=== PATIENT | male | born 1990 | race Caucasian/White ===

== ENCOUNTER 2019-12-29 05:46 | Emergency (ER) | payer OTHER, SELFPAY ==
--- NOTE | ~2019-12-29 | XR_ITS ---
EXAMINATION: XR forearm LT 2V DATE: 12/29/2019 06:55 INDICATION: Laceration at the left forearm after punching a window. TECHNIQUE: AP an lateral views of the left forearm were obtained. COMPARISON: none FINDINGS: Laceration and small amount of soft tissue gas at the volar aspect of the mid left forearm. No radiop aque foreign bodies in the region of the opacity. Small metallic foreign body, possibly a BB projecti ng in the soft tissues dorsal to the mid radius. Correlate with clinical history. Bone alignment is n ormal. No fracture. Joint spaces are normal. IMPRESSION: 1. Small metallic BB in the soft tissues dorsal to the mid radius opposite to a laceration at the vol ar aspect of the midforearm where there are no other radiopaque foreign bodies. Correlate for clinica l history of earlier penetrating trauma. Reviewed, dictated and finalized at location A. ETIC ENGINEER IMPRESSION: 1. Small metallic BB in the soft tissues dorsal to the mid radius opposite to a laceration at the volar aspect of the midforearm where there are no other radi opaque foreign bodies. Correlate for clinical history of earlier penetrating tr auma.
[2019-12-29 05:58] VITALS: BP 123/83; PULSE 98; RESP 20; TEMP 37.1; O2SAT 100
--- NOTE | 2019-12-29 06:38 | ED.WOUNDLAC ---
HPI - Wound/Laceration General Chief Complaint: Wound/Laceration Stated Complaint: lac Time Seen by Provider: 12/29/19 06:20 Source: RN notes reviewed History of Present Illness HPI narrative: Patient presents emergency department from home for left forearm laceration. Patient states that he believes approximately 2:30 AM this morning he had punched a window with his right hand. He states that he had been drinking and passed out woke up and had a heavy wrap around his left forearm when he took it off noticed a very large laceration over his left forearm. Patient is unsure of his last tetanus shot. He denies any other injuries. Denies any cuts or injuries to his right hand. Denies any pain at this time. He does note some mild tingling in the left hand but denies any fall numbness. Denies any other symptoms at this time Related Data Allergies Allergy/AdvReac Type Severity Reaction Status Date / Time Penicillins Allergy Unknown Verified 12/29/19 05:58 Review of Systems Review of Systems: Narrative: Gen.: Denies fevers or chills Musculoskeletal: Denies any joint pain Neuro: Denies numbness, tingling, weakness Skin: See HPI Endo: Denies DM PMFSH Past Medical History Medical History (Updated 12/29/19 @ 07:11 by Kuldeep Valladares DO) Patient denies medical problems Social History Social History (Updated 12/29/19 @ 06:40 by Kuldeep Valladares DO) Smoking packs per day: 0.75 Smoking cigarettes per day: 15.0 Exam Narrative: Exam Narrative: APPEARANCE: No acute distress, nontoxic, resting in bed Eyes: EOMI HEENT: Normocephalic, atraumatic, RESPIRATORY: No respiratory distress MUSCULOSKELETAl: Left lateral mid palmar forearm has a 14 cm laceration that is linear and deep there is mild venous bleeding, no definitive foreign body seen, there is a laceration of flexor tendon as well as laceration extends into the deep musculature, radial pulse 2+, full flexion extension of all 5 MCP and IP joints sensation intact distally with pinprick, no tenderness of the right hand with full flexion-extension of all 5 MCP and IP joints, radial pulse 2+, superficial abrasion over the right dorsal hand in the region of the fifth metacarpal NEURO: Awake and alert. Following commands, speech normal, no focal deficits SKIN:: Warm, dry. See musculoskeletal Course Course Emergency Course: Called and discussed Dr. Saeed for hand. At this time recommends transfer to tertiary center as with forearm laceration requires higher level of care Discussed with patient who request [facility] Discussed with Dr. Goetz at [facility] who states he will see the patient recommends transfer to the ER Discussed with Dr. Samano who accepts patient to the ER at [facility] Patient was initially waiting for ambulance transport which has been delayed the patient is willing to go by private vehicle. Family is present. The patient will be discharged to go directly to [facility] emergency department for further evaluation Vital Signs Vital signs: Vital Signs Temperature 98.7 F 12/29/19 05:58 Pulse Rate 98 12/29/19 05:58 Respiratory Rate 20 12/29/19 05:58 Blood Pressure 123/83 12/29/19 05:58 Pulse Oximetry 100 12/29/19 05:58 Temperature 98.7 F 12/29/19 05:58 Pulse Rate 98 12/29/19 05:58 Respiratory Rate 20 12/29/19 05:58 Blood Pressure 123/83 12/29/19 05:58 Pulse Oximetry 100 12/29/19 05:58 Discharge Plan Discharge Clinical Impression: Flexor tendon laceration of left forearm with open wound Condition: Stable Additional Instructions: Go directly to [facility] emergency department for further evaluation Follow-up/Referrals: UNKNOWN,DOCTOR [Primary Care Provider] - Time of Disposition: :
[2019-12-29] MEDS: TETANUS,DIPHTHERIA,AC PERTUSSIS ADULT 0.5 ML (ADACEL) IM (06:53)
[2019-12-29] MEDS: MORPHINE SULFATE 2 MG/ML INJ IV PUSH (07:03)
--- NOTE | 2019-12-29 07:07 | PC.NURSE ---
Called [facility] to transport patient to [facility] [place]. ETA [id number]. #[id number]
--- NOTE | 2019-12-29 07:48 | PC.NURSE ---
Called [facility] to check on status of eta and they stated new time is ETA [id number]
--- NOTE | 2019-12-29 08:42 | PC.NURSE ---
[facility] called and updated ETA is [id number]
--- NOTE | 2019-12-29 09:00 | PC.NURSE ---
Psychic Reader called [facility] for updated ETA. [facility] stated first they would be here at 730, then stated they had no BLS units until noon. [facility] stated that they could possibly get the 9 o'clock to come but unsure if they would be able to. Informed Pt. Pt. requested to go by private car instead due to long wait for a rig. EDP notified and EDP talked to Pt. and is ok will Pt. going by private vehicle to [place].
[2019-12-29 09:15] VITALS: BP 110/74; PULSE 76; RESP 16; O2SAT 99
--- NOTE | 2019-12-29 09:20 | PC.NURSE ---
Pt. ambulated out of ED to POV. PMS intact in bilateral arms. Pt. left department stable with IV access removed.
--- NOTE | 2019-12-29 09:28 | PC.NURSE ---
Called [facility] and spoke Jasmine HUNT to notify Pt. will be coming via private vehicle.
== END 2019-12-29 09:20 | disposition short-term general hospital (02) ==
PROVIDERS: Emergency Provider Emergency Medicine
DX: S51.812A Laceration without foreign body of left forearm, initial encounter (principal); W25.XXXA Contact with sharp glass, initial encounter; F17.210 Nicotine dependence, cigarettes, uncomplicated; Z23 Encounter for immunization
CPT/HCPCS: 73090; 90471; 90715; 96374; 99284; J2270

== ENCOUNTER 2025-07-19 20:25 | Observation (INO) | payer OTHER, SELFPAY ==
[2025-07-19] VITALS (7 sets, daily range): BP systolic 130–143; BP diastolic 86–99; PULSE 87–101; RESP 15–24; TEMP 36.6–36.8; O2SAT 94–98
--- NOTE | ~2025-07-19 | XR_ITS ---
EXAMINATION: XR chest 1V portable DATE: 07/19/2025 21:38 INDICATION: Left-sided weakness. Stroke. TECHNIQUE: frontal view of the chest was obtained. COMPARISON: None FINDINGS: The lungs are clear with no focal airspace opacities, pulmonary edema, pleural effusion or pneumothorax. The cardiomediastinal silhouette is normal. Visualized bones and soft tissues are unremarkable. IMPRESSION: 1. No acute cardiopulmonary disease. Reviewed, dictated and finalized at location A.
--- NOTE | ~2025-07-19 | CT_ITS ---
EXAMINATION: CT brain wo con DATE: 07/19/2025 21:03 INDICATION: Stroke TECHNIQUE: Computed tomography (CT) of the head was performed without intravenous contrast. Sagittal and coronal reconstructions were performed. The mA was adjusted according to patient size. Iterative reconstruction technique was employed. The dose-length product was 908.00 mGy-cm. COMPARISON: None FINDINGS: No acute intracranial hemorrhage, acute infarction or abnormal extra axial fluid collection. Ventricles are normal and symmetric. No mass/mass effect. The orbits, paranasal sinuses and mastoid air cells are normal. IMPRESSION: 1. Normal head CT. Reviewed, dictated and finalized at location A. IMPRESSION: 1. Normal head CT.
--- NOTE | ~2025-07-19 | CT_ITS ---
EXAMINATION: CT brain wo con DATE: 07/22/2025 09:46 INDICATION: Left hemiparesis. Dilated left pupil. TECHNIQUE: Computed tomography (CT) of the head was performed without intravenous contrast. Sagittal and coronal reconstructions were performed. The mA was adjusted according to patient size. Iterative reconstruction technique was employed. The dose-length product was 605.33 mGy-cm. COMPARISON: Brain MR dated 07/21/2025 FINDINGS: No acute intracranial hemorrhage, acute infarction or abnormal extra axial fluid collection. Ventricles are normal and symmetric. No mass/mass effect. Small amount of fluid/mucus layering dependently in the right sphenoid sinus. The orbits and mastoid air cells are normal. IMPRESSION: 1. Normal brain. No acute intracranial process. Reviewed, dictated and finalized at location A.
--- NOTE | ~2025-07-19 | CT_ITS ---
EXAMINATION: CTA BRAIN/CAROTID DATE: 07/19/2025 21:17 INDICATION: Stroke with left-sided numbness TECHNIQUE: Computed tomographic angiography (CTA) of the head and neck was performed with 100 mL Omnipaque-350 intravenous contrast. Multiplanar reconstructions and maximum intensity projection 3D-reconstructions of the carotid arteries and of the intracranial arteries were created by the technologist on a separate workstation. Automated exposure control and iterative reconstruction technique were employed.The dose-length product was 923.95 mGy-cm. COMPARISON: None. FINDINGS: Intracranial arteries Vertebral arteries are codominant. There is no hemodynamically significant stenosis in the vertebral, basilar and internal carotid arteries. Both A1 and P1 segments are patent. There is also a patent intercommunicating artery. There are no aneurysms identified. Cerebral arterial arborization appears symmetric. No abnormally enhancing brain lesions. Small amount of dependently layering mucus in the right sphenoid sinus. Carotid arteries: The aortic arch and the great vessels arising from the arch are normal in caliber with no dissection or hemodynamically significant stenosis. There is no evident atherosclerotic plaque with 0% stenosis of the right and left carotid bulbs relative to normal distal artery lumen diameter (NASCET criteria). Bilateral vertebral arteries are codominant with no hemodynamically significant stenosis. Groundglass opacities in the visualized upper lungs likely due to expiratory phase of imaging. Cervical soft tissues are unremarkable. Mild to moderate lower cervical spondylosis. IMPRESSION: 1. No evident atherosclerotic plaque with 0% stenosis of the right and left carotid bulbs relative to normal distal artery lumen diameter (NASCET criteria). 2. Unremarkable cerebral CT angiogram with no hemodynamically significant stenosis, thrombosis or aneurysm. Reviewed, dictated and finalized at location A. IMPRESSION: 1. No evident atherosclerotic plaque with 0% stenosis of the right and left car otid bulbs relative to normal distal artery lumen diameter (NASCET criteria). 2. Unremarkable cerebral CT angiogram with no hemodynamically significant steno sis, thrombosis or aneurysm.
--- NOTE | ~2025-07-19 | US_ITS ---
EXAMINATION: US abdomen limited DATE: 07/22/2025 08:47 INDICATION: Cirrhosis. Hepatitis. TECHNIQUE: Multiple grayscale and Doppler ultrasound images of the abdomen were obtained. COMPARISON: None FINDINGS: The pancreatic head and body are normal in appearance. The pancreatic tail is not visualized. Visualized proximal abdominal aorta and inferior vena cava are normal. There is mildly heterogeneous increased hepatic parenchymal echogenicity and coarsened echotexture consistent with diffuse hepatic steatosis. There is also fine liver surface nodularity consistent with provided history of cirrhosis. The gallbladder is normal in appearance. There is no cholelithiasis. The common bile duct measures 3 mm, which is normal. No intrahepatic biliary duct dilation suspected. Portal venous flow was seen in the hepatopetal, normal direction and has normal Doppler waveform. Sonographic [place] sign was reported as negative by the claims adjuster crop.Visualized right kidney demonstrates normal contour and echogenicity with no hydronephrosis. IMPRESSION: 1. Cirrhosis and diffuse hepatic steatosis. Reviewed, dictated and finalized at location A.
--- NOTE | ~2025-07-19 | MR_ITS ---
EXAMINATION: MR brain/brain stem wo/w con DATE: 07/21/2025 08:41 INDICATION: Left-sided weakness TECHNIQUE: Magnetic resonance imaging (MRI) of the brain and brainstem was performed without and with 15 mL Multihance intravenous contrast. Sequences included sagittal and axial T1-weighted SE, axial diffusion-weighted FS SE, axial 3D SWAN, axial T2-weighted FLAIR, and axial T2-weighted FSE. Postcontrast axial and coronal T1-weighted SE was obtained. Apparent diffusion coefficient (ADC) maps were created. COMPARISON: Head CT and CT angiogram dated 07/19/2025 FINDINGS: There are no areas of restricted diffusion to suggest acute infarction. No intracranial hemorrhage or abnormal intracranial mass lesion. There are no intraparenchymal signal abnormalities seen on the other pulse sequences. The ventricles are symmetric and normal in size. There are no abnormal extra-axial fluid collections. Flow voids are seen in the cerebral arteries on the T2- weighted sequences consistent with their expected patency. Mild mucosal thickening in the left maxillary and bilateral ethmoid sinuses. Visualized orbits and soft tissues are unremarkable. There are no areas of abnormal enhanc ement on the post contrast images. IMPRESSION: 1. Normal brain. No acute intracranial process. Reviewed, dictated and finalized at location A.
--- OUTSIDE RECORDS SUMMARY | 2025-07-19 20:28 | XMS_ITS | Clinical Summary ---
Author Organization [facility] Address [address] [place] [address] Care Team Providers Care Apartment Groundskeeper Name Role Phone Unknown, Notinfile Primary Care Provider Unavail able Allergies Active Allergy Reactions Criticality Noted Date Comments Penicillins Anaphylaxis High 12/31/2019 Medications buPROPion XL (WELLBUTRIN XL) 150 mg 24 hr tablet Take 150 mg by mouth 2 (two) times a day 9 Active acetaminophen (TYLENOL) 500 mg tablet Take 1,000 mg by mouth every 6 (six) hours as needed for pain Active HYDROcodone-love taminophen (NORCO) 5-325 mg per tabletIndicatio ns:Pain Take 1 tablet by mouth every 6 (six) hours as needed for pain (breakthrough pain only (not relieved by ibuprofen/tyleno l)) 8 tablet 0 Active docusate sodium (COLACE) 100 mg capsuleIndicati ons:constipatio n Take 1 capsule (100 mg total) by mouth 2 (two) times a day as needed for constipation 10 capsule 0 Active Active Problems Problem Noted Date Diagnosed Date Forearm laceration involving tendon, left, initial encounter 12/30/2019 Overview (12/30/2019): Added automatically from request for surgery [id number] Medical History Medical History Date Comments Tobacco abuse Laceration of forearm, left 12/29/2019 L vo lar forearm lac Cannabis abuse Back pain Full dentures Broken teeth Anxiety Family History Medical History Relation Name Comments No Known Problems Father Cancer Mother Relation Name Status Comments Father Mother Social History Tobacco Use Types Packs/Day Years Used Date Smoking Tobacco: Every Day Cigarettes Smokeless Tobacco: Never Tobacco Cessation:Ready to Q uit: No; Counseling Given: Yes Alcohol Use Standard Drinks/Week Comments Yes 3 (1 standard drink = 0.6 oz pur e alcohol) Sex and Gender Information Value Date Recorded Sex Assigned at Not on file 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 Gender Identity Not on file Sexual Orientation Not on file Obstetrics History Last Filed Vital Signs Vital Sign Reading Time Taken Comments Blood Pressure 127/84 01/02/2020 9:50 AM ELECTRONIC OPERATOR Pulse 61 01/02/2020 9:55 AM ELECTRONIC OPERATOR Temperature 36.2 C (97.2 F) 01/02/2020 9:38 AM ELECTRONIC OPERATOR Respiratory Rate 14 01/02/2020 9:38 AM ELECTRONIC OPERATOR Oxygen Saturation 96% 01/02/2020 9:55 AM ELECTRONIC OPERATOR Inhaled Oxygen Concentration - - Weight 74.8 kg (165 lb) 12/31/2019 8:40 AM ELECTRONIC OPERATOR Height 167.6 cm (5' 6) 12/31/2019 8:40 AM ELECTRONIC OPERATOR Body Mass Index 26.63 12/31/2019 8:40 AM ELECTRONIC OPERATOR Plan of Treatment Not on file Insurance [employer] ACCESS [place] OPEN ACCESS Care Teams Apartment Groundskeeper Relationship Specialty Start Date End Date Unknown, Notinfile PCP - General 12/29/19
--- NOTE | 2025-07-19 20:35 | ECG_ITS ---
Test Date: 2025-07-19 21:06:28 Measurements Intervals [place] Rate: 86 P: 52 WI: 127 QRS: 11 QRSD: 97 T: 43 QT: 348 QTc: 417 Interpretive Statements SINUS RHYTHM WITH SINUS ARRHYTHMIA BASELINE ARTIFACT- I, II NORMAL ECG No previous ECG available for comparison Electronically Signed On 07-19-2025 21:24:36 CDT by Vadim Hall D.O.
--- NOTE | 2025-07-19 20:35 | PC.NURSE ---
pt meets criteria for stroke stop. edp/charge aware. Stroke stop paged, pt to ct 1 after stroke stop, ed room 10 to follow.
[2025-07-19 20:48] LABS: Hematocrit 43.2 % (42.0-52.0); Hemoglobin 14.1 g/dL (14.0-18.0); Immature Granulocyte Percent A 0.2 % (0-0.5); Lymphocytes Absolute Auto 1.84 K/mm3 (0.9-3.2); Mean Corpuscular HGB Conc 32.6 g/dl (32-36); Mean Corpuscular Hemoglobin 29.3 pg (26-34); Mean Corpuscular Volume 89.8 fl (80-100); Nucleated Red Blood Cells Absolute Auto 0.000 K/mm3 (0.0-0.012); Nucleated Red Blood Cells Perc 0.0 % (0.0-0.2); Platelet Count Result 249 k/mm3 (150-375); Red Blood Count 4.81 M/mm3 (4.6-6.20); White Blood Count 5.5 K/mm3 (4.5-10.0)
[2025-07-19 21:02] LABS: INR 1.0; Prothrombin Time 13.0 Seconds (11.1-14.7)
[2025-07-19 21:03] LABS: Partial Thromboplastin Time 27.7 Seconds (22.3-36.8)
[2025-07-19 21:05] LABS: Alanine Aminotransferase 415 U/L (6-50); Albumin Level 4.8 g/dL (3.5-5.1); Alkaline Phosphatase 134 U/L (38-126); Anion Gap 15 mmol/L (4-12); Aspartate Amino Transferase 728 U/L (17-59); Bilirubin,Total 0.6 mg/dL (0.2-1.3); Blood Urea Nitrogen 7 mg/dL (9-20); Calcium 9.2 mg/dL (8.4-10.2); Carbon Dioxide 24 mmol/L (22-30); Chloride 106 mmol/L (98-107); Estimated CRCL calculation 104 ml/min; Estimated Glomerular Filt Rate > 60; Glucose 104 mg/dL (65-110); Magnesium 2.1 mg/dL (1.6-2.3); Potassium 3.4 mmol/L (3.4-5.0); Sodium 145 mmol/L (137-145); Total Protein 8.7 g/dL (6.3-8.2)
[2025-07-19 21:11] LABS: Troponin I < 0.012 ng/mL (0.000-0.034)
--- OUTSIDE RECORDS SUMMARY | 2025-07-19 21:30 | XMS_ITS | Clinical Summary ---
Author Organization [facility] Address [facility] [place] [address] Care Team Providers Care Automobile Brakes Bonder Name Role Phone None, Provider MD Primary Care Provider Unavaila ble Allergies Active Allergy Reactions Criticality Noted Date Comments Penicillins Swelling 08/31/2020 Medications HYDROcodone-ac etaminophen 5-325 MG tabletIndicati ons:Acute Pain < 3 Day Supply Take 1 tablet by mouth every 6 (six) hours as needed. Indications: Acute Pain < 3 Day Supply Do not exceed 4g of acetaminophen in a day. 10 tablet 0 Active Social History Tobacco Use Types Packs/Day Years Used Date Smoking Tobacco: Every Day Cigarettes Smokeless Tobacco: Never Alcohol Use Standard Drinks/Week Comments Never 0 (1 standard drink = 0.6 oz pur e alcohol) AUDIT-C Answer Date Recorded Q1: How often do you have a drink containing alc ohol? Never 08/31/2020 Average Number of Drinks Not on file 020 Frequency of Binge Drinking Not on file 08/19 Sex and Gender Information Value Date Recorded Sex Assigned at Not on file Legal Sex Male 7:16 PM CDT Gender Identity Not on file Sexual Orientation Not on file Last Filed Vital Signs Vital Sign Reading Time Taken Comments Blood Pressure 145/92 08/31/2020 6:45 PM CDT Pulse 62 08/31/2020 6:45 PM CDT Temperature 36.6 C (97.8 F) 08/31/2020 1:21 PM CDT Respiratory Rate 18 08/31/2020 6:45 PM CDT Oxygen Saturation 99% 08/31/2020 6:45 PM CDT Inhaled Oxygen Concentration - - Weight 72.6 kg (160 lb) 08/31/2020 1:21 PM CDT Height 167.6 cm (5' 6) 08/31/2020 1:21 PM CDT Body Mass Index 25.82 08/31/2020 1:21 PM CDT Plan of Treatment Health Maintenance Due Date Last Done Comments Annual Physical 1991 Hepatitis C 2006 DTaP, Tdap and Td Vaccines (1 - Tdap) 2007 03/08/1995, 07/05/1994, 07/05/1993, Additional history exists Hepatitis B Vaccines (1 of 3 - 19+ 3-dose series) 2007 Pneumococcal Vaccine: Pediatrics (0 to 5 Years) and At-Risk Patients (6 to 49 Years) (1 of 2 - PCV) 2007 HPV Vaccines (1 - 3-dose SCDM series) 2015 COVID-19 Vaccine ( - 2023- season) 2024 Meningococcal B Vaccine Aged Out No l onger eligible based on patient's age to complete this topic Meningococcal Vaccine Aged Out No barbara ishan eligible based on patient's age to complete this topic RSV Immunizations Under 20 Months Aged Out No longer eligible based on patient's age to complete this topic Insurance [employer] Care Teams Automobile Brakes Bonder Relationship Specialty Start Date End Date None, Provider, PCP - General 08/31/20
--- OUTSIDE RECORDS SUMMARY | 2025-07-19 21:31 | XMS_ITS | Clinical Summary ---
Author Organization [facility] Address [address] [place] [address] Care Team Providers Care Pilates Coordinator Name Role Phone Unknown, Notinfile Primary Care [...] (12/30/2019): Added automatically from request for surgery [id number] Medical History Medical History Date Comments Tobacco [...] on file Legal Sex Male 5:29 PM CHECKER Gender Identity Not on file Sexual Orientation Not on file Obstetrics History Last Filed Vital Signs Vital Sign Reading Time Taken Comments Blood Pressure 127/84 01/02/2020 9:50 AM CHECKER Pulse 61 01/02/2020 9:55 AM CHECKER Temperature 36.2 C (97.2 F) 01/02/2020 9:38 AM CHECKER Respiratory Rate 14 01/02/2020 9:38 AM CHECKER Oxygen Saturation 96% 01/02/2020 9:55 AM CHECKER Inhaled Oxygen Concentration - - Weight 74.8 kg (165 lb) 12/31/2019 8:40 AM CHECKER Height 167.6 cm (5' 6) 12/31/2019 8:40 AM CHECKER Body Mass Index 26.63 12/31/2019 8:40 AM CHECKER Plan of Treatment Not on file Insurance [employer] ACCESS [employer] OPEN ACCESS Care Teams Pilates Coordinator Relationship Specialty Start Date End Date Unknown, Notinfile PCP - General 12/29/19
[2025-07-19 21:52] LABS: Strep Group A RT-PCR NOT DETECTED (Negative)
[2025-07-19 22:04] LABS: Influenza A QL RT-PCR Negative (Negative); Influenza B QL RT-PCR Negative (Negative); RSV RNA, RT-PCR Negative (Negative); SARS-CoV-2 RNA PCR Negative (Negative)
--- NOTE | 2025-07-19 23:31 | ED.GENADULT ---
HPI - General Adult General Chief complaint: Neuro Symptoms/Deficit Stated complaint: FEVER, CHILLS Time Seen by Provider: 07/19/25 20:48 History of Present Illness HPI narrative: Patient is a 34-year-old gentleman presents emergency department with chief complaint of left-sided weakness. The patient reports that he was at work and does not know exactly what time passed out and laid on the floor patient states that he woke up and then about 1 hour ago called his significant other and then came to the emergency department the patient states that he felt lightheaded had some double vision and reports that he has some tingling and feels as though his strength is slightly decreased on the left side Related Data Home Medications ?Medication ?Instructions ?Recorded ?Confirmed ?Last Taken ?Type bupropion HCl 200 mg tablet,12 hr mg PO 07/19/25 Unknown History sustained-release escitalopram oxalate 10 mg tablet 20 mg 07/19/25 Unknown History Allergies Allergy/AdvReac Type Severity Reaction Status Date / Time Penicillins Allergy Unknown Verified 07/19/25 20:56 Review of Systems Review of Systems: A 10 system review of systems was completed on the patient and is negative except for what is stated in the HPI. Nursing and ancillary documentation was reviewed. [facility] Past Medical History Medical History Patient denies medical problems Social History Social History Smoking packs per day: 0.75 Smoking cigarettes per day: 15.0 Exam Narrative: GENERAL: Well-appearing, well-nourished, and in no acute distress. HEAD: Normocephalic, atraumatic. EYES: PERRLA and EOMI. ENT: Nares clear, no rhinorrhea or epistaxis. Mucous membranes moist. NECK: Supple. CHEST: Clear to auscultation. No respiratory distress. HEART: Regular rate and rhythm. No murmur heard. Normal peripheral pulses. ABDOMEN: Soft, nontender, nondistended, normal active bowel sounds. EXTREMITIES: Normal range of motion. No edema. SKIN: Warm, dry, no rash. NEURO: Slight decrease in sensation on the left side of the body patient is able hold upper extremities and lower extremities without difficulty patient subjectively reports that they feel weaker than the right side Alert and oriented x3. PSYCH: Normal mood and affect. Course Vital Signs Vital signs: Vital Signs Temperature 36.6 C 07/19/25 20:27 Pulse Rate 96 07/19/25 20:27 Respiratory Rate 16 07/19/25 20:27 Blood Pressure 143/92 H 07/19/25 20:27 Pulse Oximetry 98 07/19/25 20:27 Oxygen Delivery Room Air 07/19/25 20:27 Temperature 36.8 C 07/19/25 20:54 Pulse Rate 101 H 07/19/25 22:04 Respiratory Rate 15 07/19/25 22:04 Blood Pressure 130/86 07/19/25 21:01 Pulse Oximetry 94 07/19/25 22:04 Oxygen Delivery Room Air 07/19/25 20:27 Medical Decision Making MDM Narrative Medical decision making narrative: Differential diagnosis includes CVA, viral illness, vasovagal syncope, cardiogenic syncope, Given the patient had a syncopal episode unknown last known well as the patient is unsure of how long he was unconscious for the patient is not a candidate for tPA as well of neurological symptoms are currently with a NIH of 1 Patient currently has no drift in upper or lower extremities Vital Signs Vital Signs: Vital Signs Temperature 36.6 C 07/19/25 20:27 Pulse Rate 96 07/19/25 20:27 Respiratory Rate 16 07/19/25 20:27 Blood Pressure 143/92 H 07/19/25 20:27 Pulse Oximetry 98 07/19/25 20:27 Oxygen Delivery Room Air 07/19/25 20:27 Temperature 36.8 C 07/19/25 20:54 Pulse Rate 101 H 07/19/25 22:04 Respiratory Rate 15 07/19/25 22:04 Blood Pressure 130/86 07/19/25 21:01 Pulse Oximetry 94 07/19/25 22:04 Oxygen Delivery Room Air 07/19/25 20:27 Lab Data 07/19/25 20:42 07/19/25 20:42 Labs: Lab Results 07/19/25 07/19/25 07/19/25 Range/Units 20:39 20:42 21:19 WBC 5.5 (4.5-10.0) K/mm3 RBC 4.81 (4.6-6.20) M/mm3 Hgb 14.1 (14.0-18.0) g/dL Hct 43.2 (42.0-52.0) % MCV 89.8 (80-100) fl MCH 29.3 (26-34) pg MCHC 32.6 (32-36) g/dl RDW 12.9 (11.5-14.5) % Plt Count 249 (150-375) k/mm3 MPV 9.4 (7.4-10.4) fl Immature Gran % (Auto) 0.2 (0-0.5) % Neut % (Auto) 56.7 (45.5-73.1) % Lymph % (Auto) 33.3 (18.3-44.2) % [place] % (Auto) 7.8 (2.6-8.5) % Eos % (Auto) 0.7 (0-4.4) % Baso % (Auto) 1.3 H (0.2-1.2) % Lymph # (Auto) 1.84 (0.9-3.2) K/mm3 [place] # (Auto) 0.4 (0.1-0.6) K/mm3 Eos # (Auto) 0.0 (0-0.3) K/mm3 Baso # (Auto) 0.1 (0.0-0.1) K/mm3 Abs Immat Gran (auto) 0.01 (0.00-0.031) K/mm3 Absolute Neuts (auto) 3.1 (1.3-6.7) K/mm3 Absolute Nucleated RBC 0.000 (0.0-0.012) K/mm3 Nucleated RBC % 0.0 (0.0-0.2) % PT 13.0 (11.1-14.7) Seconds INR 1.0 APTT 27.7 (22.3-36.8) Seconds Sodium 145 (137-145) mmol/L Potassium 3.4 (3.4-5.0) mmol/L Chloride 106 (98-107) mmol/L Carbon Dioxide 24 (22-30) mmol/L Anion Gap 15 H (4-12) mmol/L BUN 7 L (9-20) mg/dL Creatinine 0.80 (0.7-1.3) mg/dL Estim Creat Clear Calc 104 ml/min Estimated GFR > 60 (59 - ) Glucose 104 (65-110) mg/dL POC Capillary Glucose 85 (65-105) mg/dl Calcium 9.2 (8.4-10.2) mg/dL Magnesium 2.1 (1.6-2.3) mg/dL Total Bilirubin 0.6 (0.2-1.3) mg/dL AST 728 H (17-59) U/L ALT 415 H (6-50) U/L Alkaline Phosphatase 134 H (38-126) U/L Troponin I < 0.012 (0.000-0.034) ng/mL Total Protein 8.7 H (6.3-8.2) g/dL Albumin 4.8 (3.5-5.1) g/dL Influenza A (RT-PCR) Negative (Negative) Influenza B (RT-PCR) Negative (Negative) RSV (RT-PCR) Negative (Negative) SARS-CoV-2 RNA (RT-PCR) Negative (Negative) Group A Strep (PCR) Not detected (Negative) Discharge Plan Discharge Clinical Impression: Syncope, Acute left-sided muscle weakness Patient Disposition: Still a Patient Condition: Stable Patient Language: Nepali Prescriptions: No Action bupropion HCl 200 mg tablet sustained-release 12 hr PO escitalopram oxalate 10 mg tablet 20 mg Follow-up/Referrals: PHYSICIAN,WHANAU SUPPORT WORKER [Primary Care Provider, Internal Medicine] Time of Disposition: 23:41
[2025-07-19 23:52] LABS: Creatine Kinase 138 U/L (55-170)
[2025-07-20] VITALS (12 sets, daily range): BP systolic 120–143; BP diastolic 72–85; PULSE 60–100; RESP 16–20; TEMP 35.9–37; O2SAT 95–100; BMI 24.7
[2025-07-20 00:15] LABS: Cannabinoid Screen Urine Positive (Negative)
[2025-07-20 00:23] LABS: Hepatitis B Surface Antigen Negative (Negative)
--- NOTE | 2025-07-20 00:28 | ADMGEN ---
This patient, Kemar Alonzo, was admitted to Medical Room 346-01. Patient/family oriented to hospital policies and general routines including ID bracelet, bed and alarms, visiting hours, pain management, procedures, bathroom and other care routines, personal items, smoking policy, room service/diet, and visiting hours. Information on how to activate the Rapid Response Team has been discussed. Patient/Family are encouraged to report perceived risks to care and to ask questions if they do not understand what they are told or what they should do.
[2025-07-20 00:29] LABS: HAV RESULT Negative (Negative); Hepatitis B Core IgM Result Negative (Negative)
--- NOTE | 2025-07-20 05:05 | P.HP_ITS ---
H&P: HPI History of Present Illness Date/Time: 07/20/25 05:05 Chief Complaint: ?Hiding av zmtq-diqb-gcbys disease? Narrative: 34-year-old male with history of depression and heavy alcohol use who drove himself to the ER to be evaluated because he was concerned he had zwrr-[id number] disease since he passed out at work today. The patient reports that for a few days he had been having some leg cramps and body aches and had a rash on his left leg with a few spots of the same rash on his right ankle. He had been exposed to a friend child had [id number]-bgofn and was worried that he may be sick from that. But otherwise did not feel bad he did not have any upper respiratory symptoms, headache, oral ulcers, or rash to his juan insoles. Today the patient had been drinking alcohol he did not think he had been drinking that much alcohol and then left to go to work. He stated that he drink a couple of hours before he left for work at 14:00. 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 He does not know how long he was unconscious. When he woke up he was having some pins and needle sensation to his left arm and leg. He reports that his arm and leg feel like they are asleep. Symptoms of improved somewhat since he arrived to the ER.He called his at around 19:00 and she encouraged him to come to the ER. While he was driving himself to the ER he felt lightheaded and had some double vision. He reported he is having trouble focusing and felt like everything was in a tunnel. He denies any double vision at this time. NIH Stroke Scale in the ER was reportedly home 1. He denies any neck stiffness, headache, nausea, vomiting. His liver enzymes were noted to be elevated in the ER he denies any known history of cirrhosis or prior liver injury. On initial presentation to the ER patient did not mention that he had been drinking alcohol. His only after his alcohol level came back at 393 after patient had already arrived to the medical floor that it became apparent that the patient was intoxicated. However the patient was alert interactive and had no overt evidence of such high level of intoxication. He does state that he has a chronic tremor that is worse at times. He denies any irritability when he does not drink. He usually drinks a pt of alcohol every other day (up to 1.5 L a week). He reports he has been drinking this heavily for several months because he is having marital issues and is currently ?not in the home?. Review of Systems 2 Review of Systems: 12 systems were reviewed with pertinent positives and negatives per HPI. Except as documented in the HPI, all other systems were reviewed and are negative. [facility] Past Medical History Medical History (Updated 07/20/25 @ 06:04 by Selina Mabry DO) Depression Surgical History Surgical History (Updated 07/20/25 @ 05:38 by Selina Mabry DO) History of repair of laceration Left forearm Family History Family History (Updated 07/20/25 @ 05:40 by Selina Mabry DO) Grandparent Cerebrovascular accident Social History Social History (Updated 07/20/25 @ 05:51 by Selina Mabry DO) Social History: Patient is but is unofficially from his . He has smoked up to a pack of cigarettes per day until about 10 years ago when he switched to vaping. He smokes marijuana every few days. He drinks 3-4 mixed drinks that have 2-3 shots in them 3 or 4 times a week. 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 Code status: Full code Surrogate decision maker: Cielo () Smoking packs per day: 1 Smoking cigarettes per day: 20.0 Years smoked: 20 Smoking pack-years: 20.00 Smoking status: Former smoker Tobacco type: cigarettes and e-cigarettes/vaping Alcohol intake: current Drinks per week: 40 Alcohol use details: 1.5 L a week Substance use type: marijuana Lack of Transportation: No Lack of Food: Never True Current Housing: I Have Housing Concerned About Future Housing: No Difficulty Paying Gas/Electric Bills: No Difficulty Paying for Meds: No Currently Unemployed: No Education: High School Diploma/GED Difficulty w/ Childcare or Family Care: No Spiritual care concerns: No Meds Home Medications and Allergies Home Medications ?Medication ?Instructions ?Recorded ?Confirmed ?Type bupropion HCl 200 mg tablet,12 hr 200 mg PO DAILY 06/2107/20/25 History sustained-release escitalopram oxalate 10 mg tablet 15 mg PO DAILY 07/1907/20/25 History Allergies Allergy/AdvReac Type Severity Reaction Status Date / Time Penicillins Allergy Unknown Verified 07/19/25 20:56 Vital Signs Vital Signs - 24 hr 07/19/25 20:27 07/19/25 20:54 07/19/25 20:54 Temperature 97.9 F 98.2 F Pulse Rate 96 87 96 Respiratory Rate 16 17 16 Blood Pressure 143/92 H 138/99 H Pulse Oximetry 98 96 98 Oxygen Delivery Room Air 07/19/25 20:54 07/19/25 21:00 07/19/25 21:01 Temperature Pulse Rate 96 91 91 Respiratory Rate 17 24 H Blood Pressure 130/86 Pulse Oximetry 95 96 Oxygen Delivery 07/19/25 21:20 07/19/25 21:31 07/19/25 22:04 Temperature Pulse Rate 98 88 101 H Respiratory Rate 20 15 15 Blood Pressure Pulse Oximetry 95 94 94 Oxygen Delivery 07/20/25 00:04 07/20/25 00:20 07/20/25 00:30 Temperature Pulse Rate 85 86 Respiratory Rate 17 Blood Pressure 120/83 Pulse Oximetry 97 Oxygen Delivery Room Air 07/20/25 00:36 07/20/25 04:00 Temperature 96.6 F L Pulse Rate 100 80 Respiratory Rate 16 Blood Pressure 132/75 Pulse Oximetry 95 Oxygen Delivery Exam 2 Narrative: Weight 74 kg BMI 24.8 Const: Other: No acute distress, well-developed well-nourished, appears stated age HENMT: Other: Mucous membranes are moist, no oral pharyngeal erythema, fair dentition, head is normocephalic atraumatic Eyes: Other: Pupils are equal and reactive, left eye does not elenita past midline, no scleral icterus, no conjunctival pallor Neck: Other: No JVD, no lymphadenopathy Resp: Other: Clear to auscultation bilaterally, no increased work of breathing Cardio: Other: Regular rate, regular rhythm, 2+ bilateral radial pedal pulses GI: Other: Soft, nontender, nondistended, no organomegaly Skin: Other: Mild pallor, non jaundice Neuro: Other: Alert oriented x4, speech is clear, no facial asymmetry, left eye does not elenita past midline, pupils are equal and reactive, patient has tremor with the left hand, he is able to do [id number] but is somewhat slower than with the right, eogu-vo-aukd intact bilaterally as well but again slower performance of the test with the left leg, no pronator drift but patient cannot hold left upper extremity up against minimal resistance, 3/5 strength on plantar flexion, impaired sensation left upper and lower extremity upper extremity greater than lower Extrem: Other: 3/5 strength against resistance of the l eft upper extremity, 4/5 billboard erector strength of the left hand (prior left forearm surgery), 3/5 strength plantar flexion left, 5/5 dorsiflexion left, 5/5 billboard erector strength right, 5/5 plantar flexion right, 5/5 dorsiflexion right Psych: Other: Appropriate mood but mildly anxious affect, pleasant and cooperative, poor insight H&P: Results Labs Labs: Laboratory Tests 07/20/25 05:41 07/19/25 07/19/25 07/19/25 20:39 20:42 21:19 WBC 5.5 RBC 4.81 Hgb 14.1 Hct 43.2 MCV 89.8 MCH 29.3 MCHC 32.6 RDW 12.9 Plt Count 249 MPV 9.4 Immature Gran % (Auto) 0.2 Neut % (Auto) 56.7 Lymph % (Auto) 33.3 [place] % (Auto) 7.8 Eos % (Auto) 0.7 Baso % (Auto) 1.3 H Lymph # (Auto) 1.84 [place] # (Auto) 0.4 Eos # (Auto) 0.0 Baso # (Auto) 0.1 Abs Immat Gran (auto) 0.01 Absolute Neuts (auto) 3.1 Absolute Nucleated RBC 0.000 Nucleated RBC % 0.0 PT 13.0 INR 1.0 APTT 27.7 Sodium 145 Potassium 3.4 Chloride 106 Carbon Dioxide 24 Anion Gap 15 H BUN 7 L Creatinine 0.80 Estim Creat Clear Calc 104 Estimated GFR > 60 Glucose 104 POC Capillary Glucose 85 Calcium 9.2 Phosphorus Magnesium 2.1 Total Bilirubin 0.6 AST 728 H ALT 415 H Alkaline Phosphatase 134 H Total Creatine Kinase 138 Troponin I < 0.012 Total Protein 8.7 H Albumin 4.8 Vitamin B12 Folate Urine Opiates Screen Urine Methadone Screen Ur Barbiturates Screen Ur Phencyclidine Scrn Ur Amphetamine Screen U Benzodiazepines Scrn Urine Cocaine Screen U Cannabinoids Screen Ethyl Alcohol 393 H* Hepatitis A IgM Ab Negative Hep Bs Antigen Negative Hep B Core IgM Ab Negative Hepatitis C Ab Screen Negative Influenza A (RT-PCR) Negative Influenza B (RT-PCR) Negative RSV (RT-PCR) Negative SARS-CoV-2 RNA (RT-PCR) Negative Group A Strep (PCR) Not detected 07/19/25 07/20/25 07/20/25 23:49 05:30 05:41 WBC 4.4 L RBC 4.51 L Hgb 13.2 L Hct 41.2 L MCV 91.4 MCH 29.3 MCHC 32.0 RDW 13.1 Plt Count 210 MPV 9.1 Immature Gran % (Auto) 0.2 Neut % (Auto) 51.1 Lymph % (Auto) 37.5 [place] % (Auto) 8.7 H Eos % (Auto) 1.4 Baso % (Auto) 1.1 Lymph # (Auto) 1.63 [place] # (Auto) 0.4 Eos # (Auto) 0.1 Baso # (Auto) 0.1 Abs Immat Gran (auto) 0.01 Absolute Neuts (auto) 2.2 Absolute Nucleated RBC 0.000 Nucleated RBC % 0.0 PT Pending INR Pending APTT Sodium Pending Potassium Pending Chloride Pending Carbon Dioxide Pending Anion Gap Pending BUN Pending Creatinine Pending Estim Creat Clear Calc Pending Estimated GFR Pending Glucose Pending POC Capillary Glucose 76 Calcium Pending Phosphorus Pending Magnesium Pending Total Bilirubin Pending AST Pending ALT Pending Alkaline Phosphatase Pending Total Creatine Kinase Troponin I Total Protein Pending Albumin Pending Vitamin B12 Pending Folate Pending Urine Opiates Screen Negative Urine Methadone Screen Negative Ur Barbiturates Screen Negative Ur Phencyclidine Scrn Negative Ur Amphetamine Screen Negative U Benzodiazepines Scrn Negative Urine Cocaine Screen Negative U Cannabinoids Screen Positive A Ethyl Alcohol Hepatitis A IgM Ab Hep Bs Antigen Hep B Core IgM Ab Hepatitis C Ab Screen Influenza A (RT-PCR) Influenza B (RT-PCR) RSV (RT-PCR) SARS-CoV-2 RNA (RT-PCR) Group A Strep (PCR) CT of the head without contrast demonstrated no acute intracranial process on my interpretation. Interpretation confirmed by statrad radiologist's. CTA of the head and neck demonstrated no stenosis, occlusion or narrowing no acute process. Test Date: 2025-07-19 21:06:28 Measurements Intervals [place] Rate: 86 P: 52 FL: 127 QRS: 11 QRSD: 97 T: 43 QT: 348 QTc: 417 Interpretive Statements SINUS RHYTHM WITH SINUS ARRHYTHMIA BASELINE ARTIFACT- I, II NORMAL ECG No previous ECG available for comparison Assessment and Plan Assessment and plan (1) Acute left-sided muscle weakness: Code(s): M62.81 - Muscle weakness (generalized) Status: Acute (2) Syncope: Qualifiers: Syncope type: unspecified Qualified Code(s): R55 - Syncope and collapse Code(s): R55 - Syncope and collapse Status: Acute (3) Acute alcoholic hepatitis: Code(s): K70.10 - Alcoholic hepatitis without ascites Status: Acute (4) Alcoholism with alcohol dependence: Qualifiers: Substance use status: with intoxication Complication of substance- induced condition: with unspecified complication Qualified Code(s): F10.229 - Alcohol dependence with intoxication, unspecified Code(s): F10.20 - Alcohol dependence, uncomplicated Status: Acute Plan Patient presents with acute loss of consciousness with differential including syncope verses seizure verses loss of consciousness due to acute alcohol intoxication. Acute alcohol intoxication seems the less likely for the cause of acute loss of consciousness given the patient was alert oriented in not obviously inebriated in the ER at suggest patient has quite a high tolerance for alcohol given his alcohol level that was obtained of the blood from his initial presentation earlier in the afternoon was still 393 at that time. The patient does have some residual weakness of the left upper and lower extremity which could be related to Eugene's paralysis if he possibly had a seizure or due to CVA. In leaning more towards patient having a CVA given subtle abnormalities in extraocular movements most notably of the left eye. Meningitis or encephalitis seem much less likely given patient is afebrile, alert oriented, having no headaches or nuchal rigidity. MRI of the brain and brainstem at been ordered for a.m. neurology has been consulted. Patient's alcohol level returned after patient had already arrived to the medical floor indicate patient was acutely intoxicated. Patient did have some tremor of his upper extremities left greater than right. He denied any irritability or anxiety but he did seem mildly anxious. Will order CIWA scores. Scheduled Librium and p.r.n. Ativan. Will give patient 1 time dose of thiamin 500 mg then start patient on p.o. thiamin 100 mg daily. Will check B12 and folic acid levels with a.m. labs. Will provide folic acid supplementation and multivitamin supplementation. Patient has transaminitis likely secondary to heavy alcohol use. Will repeat CMP and monitor. Future avoidance of alcohol was discussed with the patient in detail. Patient's magnesium level is lower limit of normal given patient's reported complaints of leg cramps will give the patient a 2 g magnesium sulfate rider. Patient's potassium was also 3.4 which is lower limit of normal give 20 mEq p.o. potassium. Patient has been admitted as observation status. MEDICAL DECISION MAKING NARRATIVE -Spoke with the ED provider in detail regarding patient's evaluation, workup and management -Patient seen and examined at bedside -Collaborated with patient's nurse at the bedside in detail and addressed all concerns -Labs, electrolytes, radiology, investigations and test results personally reviewed and interpreted unless otherwise specified -ED/Consult/Nursing/Ancilliary notes on the chart reviewed and appreciated -Spoke with patient at bedside and diagnosis and plan of care was discussed. All questions answered. Quality VTE Prophylaxis VTE prophylaxis: mechanical ordered (SCDs) Hospitalist MIPS Advance Care Plan I have confirmed that the patient's Advanced Care Plan is present, code status is documented, or surrogate decision maker is listed in patient medical record.: Yes Medication Reconciliation I have utilized all available resources to obtain, update and review the patients current medications (includes all prescriptions, OTC, herbals, cannabis, and nutritional supplements).: Yes
[2025-07-20] MEDS: THIAMINE 500 MG/NS 100 ML 500 MG/100 ML BAG 200 MG IVPB (05:26)
[2025-07-20] MEDS: chlordiazePOXIDE (*CRX) 25 MG CAPSULE PO ×4 (05:26→23:57)
[2025-07-20 05:52] LABS: Hematocrit 41.2 % (42.0-52.0); Hemoglobin 13.2 g/dL (14.0-18.0); Immature Granulocyte Percent A 0.2 % (0-0.5); Lymphocytes Absolute Auto 1.63 K/mm3 (0.9-3.2); Mean Corpuscular HGB Conc 32.0 g/dl (32-36); Mean Corpuscular Hemoglobin 29.3 pg (26-34); Mean Corpuscular Volume 91.4 fl (80-100); Nucleated Red Blood Cells Absolute Auto 0.000 K/mm3 (0.0-0.012); Nucleated Red Blood Cells Perc 0.0 % (0.0-0.2); Platelet Count Result 210 k/mm3 (150-375); Red Blood Count 4.51 M/mm3 (4.6-6.20); White Blood Count 4.4 K/mm3 (4.5-10.0)
[2025-07-20 06:11] LABS: Alanine Aminotransferase 383 U/L (6-50); Albumin Level 4.4 g/dL (3.5-5.1); Alkaline Phosphatase 132 U/L (38-126); Anion Gap 13 mmol/L (4-12); Aspartate Amino Transferase 644 U/L (17-59); Bilirubin,Total 0.7 mg/dL (0.2-1.3); Blood Urea Nitrogen 8 mg/dL (9-20); Calcium 8.6 mg/dL (8.4-10.2); Carbon Dioxide 23 mmol/L (22-30); Chloride 106 mmol/L (98-107); Estimated CRCL calculation 111 ml/min; Estimated Glomerular Filt Rate > 60; Glucose 82 mg/dL (65-110); Magnesium 1.8 mg/dL (1.6-2.3); Potassium 3.4 mmol/L (3.4-5.0); Sodium 142 mmol/L (137-145); Total Protein 7.8 g/dL (6.3-8.2)
[2025-07-20 06:15] LABS: INR 1.0; Prothrombin Time 13.8 Seconds (11.1-14.7)
[2025-07-20] MEDS: MAGNESIUM SULF 2 GM/WATER 50ML 2 GM/50 ML BAG IVPB (06:27)
[2025-07-20] MEDS: SODIUM CHLORIDE 0.9% IV 1,000 ML 999 ML IV CONT (06:28)
[2025-07-20] MEDS: POTASSIUM CHLORIDE 20 MEQ PACKET (FOR LIQUID) PO (06:30)
[2025-07-20 07:44] LABS: Vitamin B12 > 1000.0 pg/mL (239-931)
--- NOTE | 2025-07-20 07:45 | PM.IMPN ---
Progress Note: A&P Assessment and Plan (1) Acute left-sided muscle weakness: Code(s): M62.81 - Muscle weakness (generalized) Status: Acute Assessment and Plan: Lipid panel - Choleserol 217, LDL 110, 69 HDL Folate 4.7, Vit B12 >[address]: No acute findings Head/neck CTA: pending MRI ordered pending Monitor CBC, CMP, magnesium, troponin, and lipid profile Monitor blood pressure, allow for permissive hypertension. Telemetry monitoring Monitor blood glucose Denies any nuchal rigidity, headaches A&Ox4, afebrile, no leukocytosis PT/OT eval and treat Neurology consulted, appreciate assistance and recommendations (2) Syncope: Qualifiers: Syncope type: unspecified Qualified Code(s): R55 - Syncope and collapse Code(s): R55 - Syncope and collapse Status: Acute Assessment and Plan: Endorses a syncopal episode that occurred at work - no dizziness, CP, SOB, diaphoresis or dizziness before LOC No history of seizure disorders or cardiac issues Non-diabetic, glucose well controlled EKG: sinus rhythm, rate 86, QTc 417 Echo, Brain CTA, Brain MR pending Neurology consult pending (3) Acute alcoholic hepatitis: Code(s): K70.10 - Alcoholic hepatitis without ascites Status: Acute Assessment and Plan: Elevated LFTs: AST/ALT 728/415 on admission Likely 2/2 to chronic alcohol abuse 07/20: LFTs down trending - 644/383 Continue to monitor on daily labs (4) Alcoholism with alcohol dependence: Qualifiers: Complication of substance-induced condition: with unspecified complication Substance use status: with intoxication Qualified Code(s): F10.229 - Alcohol dependence with intoxication, unspecified Code(s): F10.20 - Alcohol dependence, uncomplicated Status: Acute Assessment and Plan: Reportedly drinks one pint every other day, states that he has been drinking heavily for several months due to marital issues Endorses chronic tremor Folate 4.7 B12 >1000 Denies irritability when not drinking Regular CIWA scores Scheduled Librium and p.r.n. Ativan 1 time dose of thiamin 500 mg then start patient on p.o. thiamin 100 mg daily Folic acid supplementation and multivitamin supplementation. Subjective Date/time seen: 07/20/25 07:45 Interval history: 34-year-old male with history of depression and heavy alcohol use who drove himself to the ER to be evaluated because he was concerned he had [id number] disease since he passed out at work today. The patient reports that for a few days he had been having some leg cramps and body aches and had a rash on his left leg with a few spots of the same rash on his right ankle. 07/20/2025 Patient sitting comfortably in bed at time of exam. Denies any chest pain, n/v, abdominal pain, or SOB. Positive for cannabinoids on UDS with ethyl alcohol of 393. No major electrolyte abnormalities or elevated WBC, but LFTs are elevated, likely 2/2 alcohol use. Brain CTA, MR brain and Echo pending. Neurology consult pending. Remains hemodynamically stable, afebrile, no leukocytosis. Review of Systems Review of Systems: 12 systems were reviewed with pertinent positives and negatives per HPI. Except as documented in the HPI, all other systems were reviewed and are negative. Exam Narrative: Weight 74 kg BMI 24.8 Const: Other: No acute distress, well-developed well-nourished, appears stated age HENMT: Other: Mucous membranes are moist, no oral pharyngeal erythema, fair dentition, head is normocephalic atraumatic Eyes: Other: Pupils are equal and reactive, left eye does not elenita past midline, no scleral icterus, no conjunctival pallor Neck: Other: No JVD, no lymphadenopathy Resp: Other: Clear to auscultation bilaterally, no increased work of breathing Cardio: Other: Regular rate, regular rhythm, 2+ bilateral radial pedal pulses GI: Other: Soft, nontender, nondistended, no organomegaly Skin: Other: Mild pallor, non jaundice Neuro: Other: Alert oriented x4, speech is clear, no facial asymmetry, left eye does not elenita past midline, pupils are equal and reactive, patient has tremor with the left hand, he is able to do [id number] but is somewhat slower than with the right, [id number] intact bilaterally as well but again slower performance of the test with the left leg, no pronator drift but patient cannot hold left upper extremity up against minimal resistance, 3/5 strength on plantar flexion, impaired sensation left upper and lower extremity upper extremity greater than lower Extrem: Other: 3/5 strength against resistance of the left upper extremity, 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 (prior left forearm surgery), 3/5 strength plantar flexion left, 5/5 dorsiflexion left, 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 right, 5/5 plantar flexion right, 5/5 dorsiflexion right Psych: Other: Appropriate mood but mildly anxious affect, pleasant and cooperative, poor insight Objective Data Vital Signs Vital Signs: Vital Signs - 24 hr 07/19/25 20:27 07/19/25 20:54 07/19/25 20:54 Temperature 97.9 F 98.2 F Pulse Rate 96 87 96 Respiratory Rate 16 17 16 Blood Pressure 143/92 H 138/99 H Pulse Oximetry 98 96 98 Oxygen Delivery Room Air 07/19/25 20:54 07/19/25 21:00 07/19/25 21:01 Temperature Pulse Rate 96 91 91 Respiratory Rate 17 24 H Blood Pressure 130/86 Pulse Oximetry 95 96 Oxygen Delivery 07/19/25 21:20 07/19/25 21:31 07/19/25 22:04 Temperature Pulse Rate 98 88 101 H Respiratory Rate 20 15 15 Blood Pressure Pulse Oximetry 95 94 94 Oxygen Delivery 07/20/25 00:04 07/20/25 00:20 07/20/25 00:30 Temperature Pulse Rate 85 86 Respiratory Rate 17 Blood Pressure 120/83 Pulse Oximetry 97 Oxygen Delivery Room Air 07/20/25 00:36 07/20/25 04:00 07/20/25 06:00 Temperature 96.6 F L 98.3 F Pulse Rate 100 80 80 Respiratory Rate 16 16 Blood Pressure 132/75 140/72 Pulse Oximetry 95 97 Oxygen Delivery Intake/Output Intake/Output: Intake & Output 07/17/25 07/18/25 07/19/25 07/20/25 23:59 23:59 23:59 23:59 Intake Total 650 Balance 650 Meds/Results Medications: Active Medications Generic Name Dose Route Start Last Admin Trade Name Freq PRN Reason Stop Dose Admin Bupropion HCl 200 mg 07/20/25 09:00 Bupropion Hcl Sr (12hr) 100 Mg Tabcr PO DAILY YVONNE Calcium Carbonate 200 mg 07/20/25 06:18 Calcium Carbonate (Tums) 500 Mg (200 Mg Elemental) PO Q6H PRN Indigestion Chlordiazepoxide HCl 25 mg 07/20/25 06:00 07/20/25 05:26 Chlordiazepoxide (*Crx) 25 Mg Capsule PO 25 mg Q6HR YVONNE Administration Escitalopram Oxalate 15 mg 07/20/25 09:00 Escitalopram Oxalate 5 Mg Tablet PO DAILY [facility] Magnesium Sulfate 2 gm in 50 mls @ 25 mls/hr 07/20/25 06:17 07/20/25 06:27 Magnesium Sulf 2 Gm/Water 50ml IVPB 07/20/25 08:16 25 mls/hr ONCE ONE Administration Ibuprofen 400 mg 07/20/25 06:18 Ibuprofen 400 Mg Tablet PO Q6H PRN Pain Rated 1-3 Lorazepam 2 mg 07/20/25 05:06 Lorazepam (*Crx) 1 Mg Tablet PO Q2H PRN CIWA>8, HR>100, or DBP>100 Multivitamins/Calcium 1 tablet 07/20/25 09:00 Therapeutic Multivitamins/Minerals Tab (*Bkc) PO DAILY [facility] Nicotine 1 patch 07/20/25 06:18 Nicotine (*Pbkc) 21 Mg Patch TRANSDERM DAILY PRN Nicotine withdrawal Ondansetron HCl 4 mg 07/20/25 05:06 Ondansetron Inj 4 Mg/2 Ml Vial IV PUSH Q6H PRN Nausea And Vomiting Thiamine HCl 100 mg 07/20/25 09:00 Thiamine Hcl 100 Mg Tablet PO DAILY [facility] Labs Labs: Laboratory Results - last 24 hr 07/19/25 07/19/25 07/19/25 20:39 20:42 21:19 WBC 5.5 RBC 4.81 Hgb 14.1 Hct 43.2 MCV 89.8 MCH 29.3 MCHC 32.6 RDW 12.9 Plt Count 249 MPV 9.4 Immature Gran % (Auto) 0.2 Neut % (Auto) 56.7 Lymph % (Auto) 33.3 [place] % (Auto) 7.8 Eos % (Auto) 0.7 Baso % (Auto) 1.3 H Lymph # (Auto) 1.84 [place] # (Auto) 0.4 Eos # (Auto) 0.0 Baso # (Auto) 0.1 Abs Immat Gran (auto) 0.01 Absolute Neuts (auto) 3.1 Absolute Nucleated RBC 0.000 Nucleated RBC % 0.0 PT 13.0 INR 1.0 APTT 27.7 Sodium 145 Potassium 3.4 Chloride 106 Carbon Dioxide 24 Anion Gap 15 H BUN 7 L Creatinine 0.80 Estim Creat Clear Calc 104 Estimated GFR > 60 Glucose 104 POC Capillary Glucose 85 Calcium 9.2 Phosphorus Magnesium 2.1 Total Bilirubin 0.6 AST 728 H ALT 415 H Alkaline Phosphatase 134 H Total Creatine Kinase 138 Troponin I < 0.012 Total Protein 8.7 H Albumin 4.8 Vitamin B12 Folate Urine Opiates Screen Urine Methadone Screen Ur Barbiturates Screen Ur Phencyclidine Scrn Ur Amphetamine Screen U Benzodiazepines Scrn Urine Cocaine Screen U Cannabinoids Screen Ethyl Alcohol 393 H* Hepatitis A IgM Ab Negative Hep Bs Antigen Negative Hep B Core IgM Ab Negative Hepatitis C Ab Screen Negative Influenza A (RT-PCR) Negative Influenza B (RT-PCR) Negative RSV (RT-PCR) Negative SARS-CoV-2 RNA (RT-PCR) Negative Group A Strep (PCR) Not detected 07/19/25 07/20/25 07/20/25 23:49 05:30 05:41 WBC 4.4 L RBC 4.51 L Hgb 13.2 L Hct 41.2 L MCV 91.4 MCH 29.3 MCHC 32.0 RDW 13.1 Plt Count 210 MPV 9.1 Immature Gran % (Auto) 0.2 Neut % (Auto) 51.1 Lymph % (Auto) 37.5 [place] % (Auto) 8.7 H Eos % (Auto) 1.4 Baso % (Auto) 1.1 Lymph # (Auto) 1.63 [place] # (Auto) 0.4 Eos # (Auto) 0.1 Baso # (Auto) 0.1 Abs Immat Gran (auto) 0.01 Absolute Neuts (auto) 2.2 Absolute Nucleated RBC 0.000 Nucleated RBC % 0.0 PT 13.8 INR 1.0 APTT Sodium 142 Potassium 3.4 Chloride 106 Carbon Dioxide 23 Anion Gap 13 H BUN 8 L Creatinine 0.77 Estim Creat Clear Calc 111 Estimated GFR > 60 Glucose 82 POC Capillary Glucose 76 Calcium 8.6 Phosphorus 3.4 Magnesium 1.8 Total Bilirubin 0.7 AST 644 H ALT 383 H Alkaline Phosphatase 132 H Total Creatine Kinase Troponin I Total Protein 7.8 Albumin 4.4 Vitamin B12 > 1000.0 H Folate 4.7 Urine Opiates Screen Negative Urine Methadone Screen Negative Ur Barbiturates Screen Negative Ur Phencyclidine Scrn Negative Ur Amphetamine Screen Negative U Benzodiazepines Scrn Negative Urine Cocaine Screen Negative U Cannabinoids Screen Positive A Ethyl Alcohol Hepatitis A IgM Ab Hep Bs Antigen Hep B Core IgM Ab Hepatitis C Ab Screen Influenza A (RT-PCR) Influenza B (RT-PCR) RSV (RT-PCR) SARS-CoV-2 RNA (RT-PCR) Group A Strep (PCR) Quality VTE Prophylaxis VTE prophylaxis: mechanical ordered (SCDs)
[2025-07-20 08:13] LABS: Cholesterol 217 mg/dL (0-200); HDL Direct 69 mg/dL; Triglycerides 84 mg/dL (<150)
[2025-07-20] MEDS: buPROPion HCL SR (12HR) 100 MG TABCR 200 MG PO (09:18)
[2025-07-20] MEDS: THIAMINE HCL 100 MG TABLET PO (09:19)
[2025-07-20] MEDS: ESCITALOPRAM OXALATE 5 MG TABLET 15 MG PO (09:19)
[2025-07-20] MEDS: THERAPEUTIC MULTIVITAMINS/MINERALS TAB (*BKC) 1 TABLET PO (09:19)
--- NOTE | 2025-07-20 17:40 | WPDNEURCNPN ---
Assessment and Plan Assessment and plan (1) Syncope: Qualifiers: Syncope type: unspecified Qualified Code(s): R55 - Syncope and collapse Code(s): R55 - Syncope and collapse Status: Acute (2) Alcoholism with alcohol dependence: Qualifiers: Substance use status: with intoxication Complication of substance-induced condition: with unspecified complication Qualified Code(s): F10.229 - Alcohol dependence with intoxication, unspecified Code(s): F10.20 - Alcohol dependence, uncomplicated Status: Acute (3) Acute alcoholic hepatitis: Code(s): K70.10 - Alcoholic hepatitis without ascites Status: Acute (4) Hereditary essential tremor: Code(s): G25.0 - Essential tremor Status: Acute Plan Patient does have history of drinking alcohol and alcohol level is fairly high. He has apparently admitted is to the nursing staff. His is very concerned about liver condition. His CT scan of the brain and CT angiogram head and neck did not show any significant abnormalities. I do not find any focal deficit however he does have a family essential tremor and he has family history of the same in case of his father. thus far is not showing any significant signs of alcohol withdrawal. He is getting vitamin B12 1 and other observation side in place. Episode of unresponsiveness could have been due to alcohol level being so high and vasovagal attack. However, his liver enzymes were elevated and he will be followed up from the point of alcoholic hepatitis. From neurologic point of view MRI of the brain has been requested we shall follow the results of this. If he has any further passing out spell I would like to informed. Consult date: 07/20/25 HPI: Kemar Alonzo is a 34 year old male who presented to the hospital with loss of consciousness. The time of the presentation it was not clear if he has any history of alcohol drinking. He has some blood alcohol level 5 subsequently found to very high at 393 mg%. He also history of hand foot and mouth disease and a familial essential tremor. He lives his . The history of hepatitis and his a is very concerned about it. He has a AST and ALT were well over 600. CT scan of brain and CT angiogram head and neck were performed which did not show any significant abnormalities. LDL was high at 110. He has not had any further passing out spell or any seizure-like activity. Been fairly appropriate in terms of behavior worsen nursing staff. Review of Systems Review of Systems: All systems reviewed & are unremarkable except as noted in HPI and below PMFSH Past Medical History Medical History (Updated 07/20/25 @ 17:44 by Amanda Mata MD) Hereditary essential tremor Depression Surgical History Surgical History (Updated 07/20/25 @ 05:38 by Selina Mabry DO) History of repair of laceration Left forearm Family History Family History (Updated 07/20/25 @ 05:40 by Selina Mabry DO) Grandparent Cerebrovascular accident Social History Social History (Updated 07/20/25 @ 05:51 by Selina Mabry DO) Social History: Patient is but is unofficially from his . He has smoked up to a pack of cigarettes per day until about 10 years ago when he switched to vaping. He smokes marijuana every few days. He drinks 3-4 mixed drinks that have 2-3 shots in them 3 or 4 times a week. 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 Code status: Full code Surrogate decision maker: Cielo () Smoking packs per day: 1 Smoking cigarettes per day: 20.0 Years smoked: 20 Smoking pack-years: 20.00 Smoking status: Former smoker Tobacco type: cigarettes and e-cigarettes/vaping Alcohol intake: current Drinks per week: 40 Alcohol use details: 1.5 L a week Substance use type: marijuana Lack of Transportation: No Lack of Food: Never True Current Housing: I Have Housing Concerned About Future Housing: No Difficulty Paying Gas/Electric Bills: No Difficulty Paying for Meds: No Currently Unemployed: No Education: High School Diploma/GED Difficulty w/ Childcare or Family Care: No Spiritual care concerns: No Meds Home Medications and Allergies Home Medications ?Medication ?Instructions ?Recorded ?Confirmed ?Type bupropion HCl 200 mg tablet,12 hr 200 mg PO DAILY 07/19/25 07/20/25 History sustained-release escitalopram oxalate 10 mg tablet 15 mg PO DAILY 07/19/25 07/20/25 History Allergies Allergy/AdvReac Type Severity Reaction Status Date / Time Penicillins Allergy Unknown Verified 07/19/25 20:56 Vital Signs Vital Signs - 24 hr 07/19/25 20:27 07/19/25 20:54 07/19/25 20:54 Temperature 97.9 F 98.2 F Pulse Rate 96 87 96 Respiratory Rate 16 17 16 Blood Pressure 143/92 H 138/99 H Pulse Oximetry 98 96 98 Oxygen Delivery Room Air 07/19/25 20:54 07/19/25 21:00 07/19/25 21:01 Temperature Pulse Rate 96 91 91 Respiratory Rate 17 24 H Blood Pressure 130/86 Pulse Oximetry 95 96 Oxygen Delivery 07/19/25 21:20 07/19/25 21:31 07/19/25 22:04 Temperature Pulse Rate 98 88 101 H Respiratory Rate 20 15 15 Blood Pressure Pulse Oximetry 95 94 94 Oxygen Delivery 07/20/25 00:04 07/20/25 00:20 07/20/25 00:30 Temperature Pulse Rate 85 86 Respiratory Rate 17 Blood Pressure 120/83 Pulse Oximetry 97 Oxygen Delivery Room Air 07/20/25 00:36 07/20/25 04:00 07/20/25 06:00 Temperature 96.6 F L 98.3 F Pulse Rate 100 80 80 Respiratory Rate 16 16 Blood Pressure 132/75 140/72 Pulse Oximetry 95 97 Oxygen Delivery 07/20/25 08:20 07/20/25 15:12 Temperature 97.7 F Pulse Rate 64 Respiratory Rate 16 Blood Pressure 140/85 Pulse Oximetry 97 Oxygen Delivery Room Air Exam Narrative: Fully conscious alert oriented to self time place and person. Speech is fluent and articulate. Patient appears fairly com and cooperative. No aphasia or dysarthria. S tremors of the outstretched hand. Also a mild tremor of the legs when extended and raised were noted. No other involuntary movements. No cogwheeling. Examination head and neck was unremarkable no evidence of external trauma. No carotid bruit. Heart sounds were normal. Cranial nerves on individual testing are intact. There is no facial asymmetry. Pupils were equal reactive light. Tongue was midline. Other cranial normal limits. motor system shows normal power and tone in both upper and lower limbs. Deep tendon reflexes did not show any significant asymmetry sensory examination was grossly intact. Results Labs 07/20/25 05:41 07/20/25 05:41 Labs: Short CBC 07/19/25 07/20/25 Range/Units 20:42 05:41 WBC 5.5 4.4 L (4.5-10.0) K/mm3 Hgb 14.1 13.2 L (14.0-18.0) g/dL Hct 43.2 41.2 L (42.0-52.0) % Plt Count 249 210 (150-375) k/mm3 BMP 07/19/25 07/20/25 20:42 05:41 Sodium 145 142 Potassium 3.4 3.4 Chloride 106 106 Carbon Dioxide 24 23 BUN 7 L 8 L Creatinine 0.80 0.77 Glucose 104 82 Calcium 9.2 8.6 Cardiac Enzymes 07/19/25 Range/Units 20:42 Total Creatine Kinase 138 (55-170) U/L Troponin I < 0.012 (0.000-0.034) ng/mL Liver Function 07/19/25 07/20/25 Range/Units 20:42 05:41 Total Bilirubin 0.6 0.7 (0.2-1.3) mg/dL AST 728 H 644 H (17-59) U/L ALT 415 H 383 H (6-50) U/L Alkaline Phosphatase 134 H 132 H (38-126) U/L Albumin 4.8 4.4 (3.5-5.1) g/dL Imaging Attestation: I personally reviewed and interpreted this imaging study as follows: ( CT angiogram of the head and neck and CT scan of brain) My impression: no significant abnormalities were noted. Radiologist's impression: Similar
--- NOTE | 2025-07-20 21:38 | PC.NURSE ---
On 07/20/25, Lorie, RN orientee, provided care and completed [email or web address] documentation on this patient. I have reviewed Lorie's documentation and agree with the findings.
[2025-07-21] VITALS (9 sets, daily range): BP systolic 117–149; BP diastolic 76–79; PULSE 51–71; RESP 18; TEMP 37; O2SAT 98–100
--- NOTE | 2025-07-21 | ECHO_ITS ---
Patient Info Name: Kemar Alonzo Age: 34 years : 1990 Gender: Male Ht: 68 in Wt: 163 lbs BSA: 1.89 m2 HR: 57 bpm BP: 117 / 79 mmHg Technical Quality: Good Exam Date: 07/21/2025 9:53 AM Patient Status: I Admit Date: 07/19/2025 Exam Type: CA echo doppler color flow Complete two-dimensional, color flow and Doppler transthoracic echocardiogram is performed. Staff Referring Physician: Dany Lane MD Fat Pressroom Worker: Fabian Dougherty III Attending Provider: Selina Mabry DO Summary 1. Complete two-dimensional, color flow and Doppler transthoracic echocardiogram is performed. 2. There is normal biventricular size and systolic function. 3. There are no significant valvular abnormalities. Left Ventricle The left ventricle is normal in size and systolic function. The left ventricular ejection fraction is visually estimated to be 60-65%. Right Ventricle The right ventricle is normal in size and systolic function. Left Atria The left atrium is normal size. Right Atria The right atrium is normal size. Atrial Septum The atrial septum is not well visualized. Aortic Valve The aortic valve is trileaflet and opens well. There is no aortic regurgitation. Pulmonic Valve The pulmonic valve is not well visualized. There is no color Doppler evidence of pulmonic valve regurgitation. Mitral Valve The mitral valve is normal. There is no mitral regurgitation. Tricuspid Valve The tricuspid valve is normal. There is no tricuspid regurgitation. Pericardium/Pleural Pericardium is normal in appearance with no evidence for significant pericardial effusion. Inferior Vena Cava Normal inferior vena cava with >50% collapse upon inspiration consistent with normal right atrial pressure, 3 mmHg. Aorta The aortic root at the level of the sinus of Valsalva measures 3.0 cm in diameter. Left Ventricular Outflow Tract Name Value Normal LVOT 2D LVOT Diameter 2.2 cm LVOT Doppler LVOT Peak Velocity 119 cm/s LVOT Peak Gradient 6 mmHg LVOT Mean Gradient 3 mmHg LVOT VTI 19 cm LVOT VTI/AV VTI Ratio 1.2 LVOT Stroke Volume 70 ml LVOT CO 18.0 l/min LVOT CI 9.5 l/min/m2 Pulmonic Valve Name Value Normal PV Doppler PV Peak Velocity 107 cm/s PV Peak Gradient 5 mmHg PV Mean Gradient 3 mmHg Mitral Valve Name Value Normal MV Doppler MV Peak Gradient 2 mmHg MV Mean Gradient 1 mmHg MV Area (Cont Eq VTI) 3.6 cm2 MV Diastolic Function MV E Peak Velocity 69 cm/s MV A Peak Velocity 46 cm/s MV E/A 1.5 MV Decel Time (PW) 265 ms MV Annular TDI MV E/e' (Septal) 5.9 MV E/e' (Lateral) 4.7 MV E/e' (Average) 5.3 Tricuspid Valve Name Value Normal Estimated PAP/RSVP RA Pressure 3 mmHg <=5 TV Annular TDI TV Lateral Elena s' Velocity 20.3 cm/s >=9.5 Aortic Valve Name Value Normal AV Doppler AV Peak Velocity 111 cm/s AV Peak Gradient 5 mmHg AV Mean Gradient 3 mmHg AV VTI 16 cm AV Area (Cont Eq VTI) 4.3 cm2 >=3.0 AV Area (Cont Eq Pablo) 3.9 cm2 AV DI (Pablo) 1.07 AV Regurgitation 2D LVOT Area 3.7 cm2 Ventricles Name Value Normal LV Dimensions 2D/MM IVS Diastolic Thickness (2D) 0.8 cm 0.6-1.0 LVID Diastole (2D) 5.1 cm 4.2-5.8 LVIW Diastolic Thickness (2D) 0.8 cm 0.6-1.0 LVID Systole (2D) 3.8 cm 2.5-4.0 LVOT Diameter 2.2 cm LV Mass (2D Cubed) 142.57 g 88.00-224.00 LV Mass Index (2D Cubed) 75 g/m2 49-115 Relative Wall Thickness (2D) 0.31 <=0.42 LV Fractional Shortening/Ejection Fraction 2D/MM LV Fractional Shortening (2D) 25 % 25-43 LV EF (2D Teichholz) 49 % LV Diastolic Volume (4C MOD) 99 ml LV EF (4C MOD) 58 % LV Diastolic Volume (2C MOD) 63 ml LV EF (2C MOD) 61 % LV Diastolic Volume (BP MOD) 82 ml 62-150 LV Diastolic Volume Index (BP MOD) 43 ml/m2 34-74 LV Systolic Volume (BP MOD) 33 ml 21-61 LV Systolic Volume Index (BP MOD) 18 ml/m2 11-31 LV EF (BP MOD) 60 % 52-72 LV Diastolic Length (4C) 8.0 cm LV Systolic Length (4C) 6.7 cm LV Stroke Volume (4C MOD) 58 ml Atria Name Value Normal LA Dimensions LA Volume (4C A-L) 31 ml LA Volume (BP A-L) 36 ml RA Dimensions RA Systolic Major Ideal Length (4C) 4.3 cm 2.1-2.7 RA Area (4C) 11.2 cm2 <=18.0 Report Signatures
[2025-07-21] MEDS: chlordiazePOXIDE (*CRX) 25 MG CAPSULE PO ×4 (06:06→23:28)
--- NOTE | 2025-07-21 07:42 | P.PNIM_ITS ---
Progress Note: A&P Assessment and Plan (1) Acute left-sided muscle weakness: Code(s): M62.81 - Muscle weakness (generalized) Status: Acute Assessment and Plan: * Lipid panel - Cholesterol 217, LDL 110, 69 HDL * Folate 4.7, Vit B12 >1000 * Head CT: No acute findings * Head/neck CTA: No evident atherosclerotic plaque with 0% stenosis of the right and left carotid bulbs. Unremarkable cerebral CT angiogram with no hemodynamically significant stenosis * Monitor CBC, CMP, magnesium, troponin, and lipid profile * Monitor blood pressure, allow for permissive hypertension. * Telemetry monitoring * Monitor blood glucose * Denies any nuchal rigidity, headaches * A&Ox4, afebrile, no leukocytosis * Neurology consulted, appreciate assistance and recommendations * Brain MRI and Echo pending (2) Syncope: Qualifiers: Syncope type: unspecified Qualified Code(s): R55 - Syncope and collapse Code(s): R55 - Syncope and collapse Status: Acute Assessment and Plan: * Endorses a syncopal episode that occurred at work - no dizziness, CP, SOB, diaphoresis or dizziness before LOC * No history of seizure disorders or cardiac issues * Non-diabetic, glucose well controlled * EKG: sinus rhythm, rate 86, QTc 417 * Echo & Brain MR pending * Head CTA negative * Neurology consult pending (3) Acute alcoholic hepatitis: Code(s): K70.10 - Alcoholic hepatitis without ascites Status: Acute Assessment and Plan: * Elevated LFTs: AST/ALT 728/415 on admission * Likely 2/2 to chronic alcohol abuse * 9/: LFTs down trending - 644/383 -> 347/273 * Continue to monitor on daily labs * R/u other causes - hepatitis panel (4) Alcoholism with alcohol dependence: Qualifiers: Complication of substance-induced condition: with unspecified complication Substance use status: with intoxication Qualified Code(s): F10.229 - Alcohol dependence with intoxication, unspecified Code(s): F10.20 - Alcohol dependence, uncomplicated Status: Acute Assessment and Plan: * Reportedly drinks one pint every other day, states that he has been drinking heavily for several months due to marital issues * Endorses chronic tremor * Folate 4.7 * B12 >1000 * Denies irritability when not drinking * Regular CIWA scores * Scheduled Librium and p.r.n. Ativan * 1 time dose of thiamin 500 mg then start patient on p.o. thiamin 100 mg daily * Folic acid supplementation and multivitamin supplementation. Subjective Date/time seen: 07/21/25 07:42 Interval history: 34-year-old male with history of depression and heavy alcohol use who drove himself to the ER to be evaluated because he was concerned he had [id number] [id number] disease since he passed out at work today. The patient reports that for a few days he had been having some leg cramps and body aches and had a rash on his left leg with a few spots of the same rash on his right ankle. 07/21/2025 Patient sitting comfortably in bed at time of exam. No complaints this morning, no overnight events. Pending brain MRI and echocardiogram. Head/Neck CTA negative for any acute findings. Neuro consulted. Liver enzymes downtrending but will r/o other causes of hepatitis - no abd pain on exam. No other concerns at this time. Review of Systems Review of Systems: 12 systems were reviewed with pertinent positives and negatives per HPI. Except as documented in the HPI, all other systems were reviewed and are negative. Exam Narrative: Weight 74 kg BMI 24.8 Const: Other: No acute distress, well-developed well-nourished, appears stated age HENMT: Other: Mucous membranes are moist, no oral pharyngeal erythema, fair dentition, head is normocephalic atraumatic Eyes: Other: Pupils are equal and reactive, left eye does not elenita past midline, no scleral icterus, no conjunctival pallor Neck: Other: No JVD, no lymphadenopathy Resp: Other: Clear to auscultation bilaterally, no increased work of breathing Cardio: Other: Regular rate, regular rhythm, 2+ bilateral radial pedal pulses GI: Other: Soft, nontender, nondistended, no organomegaly Skin: Other: Mild pallor, non jaundice Neuro: Other: Alert oriented x4, speech is clear, no facial asymmetry, left eye does not elenita past midline, pupils are equal and reactive, patient has tremor with the left hand, he is able to do [id number] but is somewhat slower than with the right, [id number] intact bilaterally as well but again slower performance of the test with the left leg, no pronator drift but patient cannot hold left upper extremity up against minimal resistance, 3/5 strength on plantar flexion, impaired sensation left upper and lower extremity upper extremity greater than lower Extrem: Other: 3/5 strength against resistance of the l eft upper extremity, 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 (prior left forearm surgery), 3/5 strength plantar flexion left, 5/5 dorsiflexion left, 5/5 auto body repair technician strength right, 5/5 plantar flexion right, 5/5 dorsiflexion right Psych: Other: Appropriate mood but mildly anxious affect, pleasant and cooperative, poor insight Objective Data Vital Signs Vital Signs: Vital Signs - 24 hr 07/20/25 08:00 07/20/25 08:20 07/20/25 12:00 Temperature Pulse Rate 86 62 Respiratory Rate Blood Pressure Pulse Oximetry Oxygen Delivery Room Air Fraction of Inspired Oxygen 07/20/25 15:12 07/20/25 16:00 07/20/25 20:00 Temperature 97.7 F Pulse Rate 64 74 66 Respiratory Rate 16 Blood Pressure 140/85 Pulse Oximetry 97 Oxygen Delivery Fraction of Inspired Oxygen 07/20/25 20:02 07/20/25 20:51 07/21/25 00:00 Temperature 98.6 F Pulse Rate 78 60 64 Respiratory Rate 20 18 Blood Pressure 143/84 H Pulse Oximetry 98 100 Oxygen Delivery Room Air Fraction of Inspired Oxygen 21 07/21/25 04:00 07/21/25 05:45 Temperature 98.6 F Pulse Rate 51 L 57 L Respiratory Rate 18 Blood Pressure 117/79 Pulse Oximetry 98 Oxygen Delivery Fraction of Inspired Oxygen Intake/Output Intake/Output: Intake & Output 07/18/25 07/19/25 07/20/25 07/21/25 23:59 23:59 23:59 23:59 Intake Total 3330 Balance 3330 Meds/Results Medications: Active Medications Generic Name Dose Route Start Last Admin Trade Name Freq PRN Reason Stop Dose Admin Bupropion HCl 200 mg 07/20/25 09:00 07/20/25 09:18 Bupropion Hcl Sr (12hr) 100 Mg Tabcr PO 200 mg DAILY YVONNE Administration Calcium Carbonate 200 mg 07/20/25 06:18 Calcium Carbonate (Tums) 500 Mg (200 Mg Elemental) PO Q6H PRN Indigestion Chlordiazepoxide HCl 25 mg 07/20/25 06:00 07/21/25 06:06 Chlordiazepoxide (*Crx) 25 Mg Capsule PO 25 mg Q6HR YVONNE Administration Escitalopram Oxalate 15 mg 07/20/25 09:00 07/20/25 09:19 Escitalopram Oxalate 5 Mg Tablet PO 15 mg DAILY YVONNE Administration Ibuprofen 400 mg 07/20/25 06:18 Ibuprofen 400 Mg Tablet PO Q6H PRN Pain Rated 1-3 Lorazepam 2 mg 07/20/25 05:06 Lorazepam (*Crx) 1 Mg Tablet PO Q2H PRN CIWA>8, HR>100, or DBP>100 Multivitamins/Calcium 1 tablet 07/20/25 09:00 07/20/25 09:19 Therapeutic Multivitamins/Minerals Tab (*Bkc) PO 1 tablet DAILY YVONNE Administration Nicotine 1 patch 07/20/25 06:18 Nicotine (*Pbkc) 21 Mg Patch TRANSDERM DAILY PRN Nicotine withdrawal Ondansetron HCl 4 mg 07/20/25 05:06 Ondansetron Inj 4 Mg/2 Ml Vial IV PUSH Q6H PRN Nausea And Vomiting Perflutren Lipid Microsphere 0 ml 07/20/25 09:42 Perflutren Lipid Microspheres 1.5 Ml Vial Diluted To 10 Ml Total Volume IV PUSH 07/23/25 09:42 ONCE PRN adequate visualization Protocol Thiamine HCl 100 mg 07/20/25 09:00 07/20/25 09:19 Thiamine Hcl 100 Mg Tablet PO 100 mg DAILY YVONNE Administration Radiology Results: ITS Impressions Head CT 07/20/25 12:28 IMPRESSION: 1. Normal head CT. Chest X-Ray 07/20/25 14:22 IMPRESSION: 1. No acute cardiopulmonary disease. Head/Neck CTA 07/20/25 15:56 IMPRESSION: 1. No evident atherosclerotic plaque with 0% stenosis of the right and left carotid bulbs relative to normal distal artery lumen diameter (NASCET criteria). 2. Unremarkable cerebral CT angiogram with no hemodynamically significant stenosis, thrombosis or aneurysm. Labs Labs: Laboratory Results - last 24 hr 07/20/25 07/20/25 07/20/25 05:41 11:42 16:54 POC Capillary Glucose 77 78 Triglycerides 84 Cholesterol 217 H LDL Cholesterol Direct 110 HDL Direct 69 Vitamin B12 > 1000.0 H Folate 4.7 07/20/25 07/21/25 23:53 06:09 POC Capillary Glucose 79 89 Triglycerides Cholesterol LDL Cholesterol Direct HDL Direct Vitamin B12 Folate Quality VTE Prophylaxis VTE prophylaxis: mechanical ordered (SCDs)
[2025-07-21 07:54] LABS: Hematocrit 41.3 % (42.0-52.0); Hemoglobin 13.5 g/dL (14.0-18.0); Immature Granulocyte Percent A 0.3 % (0-0.5); Lymphocytes Absolute Auto 0.85 K/mm3 (0.9-3.2); Mean Corpuscular HGB Conc 32.7 g/dl (32-36); Mean Corpuscular Hemoglobin 29.6 pg (26-34); Mean Corpuscular Volume 90.6 fl (80-100); Nucleated Red Blood Cells Absolute Auto 0.000 K/mm3 (0.0-0.012); Nucleated Red Blood Cells Perc 0.0 % (0.0-0.2); Platelet Count Result 193 k/mm3 (150-375); Red Blood Count 4.56 M/mm3 (4.6-6.20); White Blood Count 5.9 K/mm3 (4.5-10.0)
[2025-07-21 08:28] LABS: Alanine Aminotransferase 273 U/L (6-50); Albumin Level 4.3 g/dL (3.5-5.1); Alkaline Phosphatase 127 U/L (38-126); Anion Gap 11 mmol/L (4-12); Aspartate Amino Transferase 347 U/L (17-59); Bilirubin,Total 1.7 mg/dL (0.2-1.3); Blood Urea Nitrogen 7 mg/dL (9-20); Calcium 9.1 mg/dL (8.4-10.2); Carbon Dioxide 25 mmol/L (22-30); Chloride 99 mmol/L (98-107); Estimated CRCL calculation 123 ml/min; Estimated Glomerular Filt Rate > 60; Glucose 97 mg/dL (65-110); Potassium 3.7 mmol/L (3.4-5.0); Sodium 135 mmol/L (137-145); Total Protein 7.7 g/dL (6.3-8.2)
[2025-07-21] MEDS: ESCITALOPRAM OXALATE 5 MG TABLET 15 MG PO (09:29)
[2025-07-21] MEDS: buPROPion HCL SR (12HR) 100 MG TABCR 200 MG PO (09:29)
[2025-07-21] MEDS: THIAMINE HCL 100 MG TABLET PO (09:29)
[2025-07-21] MEDS: THERAPEUTIC MULTIVITAMINS/MINERALS TAB (*BKC) 1 TABLET PO (09:29)
[2025-07-22] VITALS: BP 130/90; PULSE 60; PULSE 69; RESP 16; O2SAT 100
[2025-07-22 04:00] VITALS: PULSE 62
[2025-07-22] MEDS: chlordiazePOXIDE (*CRX) 25 MG CAPSULE PO (05:02)
[2025-07-22 05:03] VITALS: BP 133/90; PULSE 62; RESP 16; TEMP 36.7; O2SAT 100
[2025-07-22 05:56] LABS: Hematocrit 42.8 % (42.0-52.0); Hemoglobin 13.6 g/dL (14.0-18.0); Immature Granulocyte Percent A 0.4 % (0-0.5); Lymphocytes Absolute Auto 1.22 K/mm3 (0.9-3.2); Mean Corpuscular HGB Conc 31.8 g/dl (32-36); Mean Corpuscular Hemoglobin 29.5 pg (26-34); Mean Corpuscular Volume 92.8 fl (80-100); Nucleated Red Blood Cells Absolute Auto 0.000 K/mm3 (0.0-0.012); Nucleated Red Blood Cells Perc 0.0 % (0.0-0.2); Platelet Count Result 180 k/mm3 (150-375); Red Blood Count 4.61 M/mm3 (4.6-6.20); White Blood Count 4.5 K/mm3 (4.5-10.0)
[2025-07-22 06:05] LABS: Alanine Aminotransferase 250 U/L (6-50); Albumin Level 4.3 g/dL (3.5-5.1); Alkaline Phosphatase 114 U/L (38-126); Anion Gap 10 mmol/L (4-12); Aspartate Amino Transferase 312 U/L (17-59); Bilirubin,Total 1.2 mg/dL (0.2-1.3); Blood Urea Nitrogen 7 mg/dL (9-20); Calcium 9.1 mg/dL (8.4-10.2); Carbon Dioxide 26 mmol/L (22-30); Chloride 101 mmol/L (98-107); Estimated CRCL calculation 109 ml/min; Estimated Glomerular Filt Rate > 60; Glucose 108 mg/dL (65-110); Potassium 3.1 mmol/L (3.4-5.0); Sodium 137 mmol/L (137-145); Total Protein 7.7 g/dL (6.3-8.2)
[2025-07-22 08:00] VITALS: PULSE 56
[2025-07-22] MEDS: ESCITALOPRAM OXALATE 5 MG TABLET 15 MG PO (08:53)
[2025-07-22] MEDS: THIAMINE HCL 100 MG TABLET PO (08:53)
[2025-07-22] MEDS: THERAPEUTIC MULTIVITAMINS/MINERALS TAB (*BKC) 1 TABLET PO (08:53)
[2025-07-22] MEDS: buPROPion HCL SR (12HR) 100 MG TABCR 200 MG PO (08:53)
[2025-07-22] MEDS: POTASSIUM CHLORIDE 20 MEQ ER TABLET 40 MEQ PO (10:08)
[2025-07-22 12:06] VITALS: PULSE 72
--- NOTE | 2025-07-22 12:30 | P.PNNEUR_ITS ---
Subjective Date/time seen: 07/22/25 12:30 Interval history: 34 years old admitted to the hospital through the emergency room for the complaints of left-sided weakness in addition to history of passing out. Patient does have ongoing history of chronic alcohol excessive consumption. Inpedro pablo hermes he was seen by and was documented to have the essential tremor on the basis family history, his initial alcohol level was 393, B12 and folate levels are not back also his MCV was only 92.8, MRI of the brain has been done which is normal, head and neck CTA was also done in the emergency room which was negative for any vascular involvement or aneurysm, follow-up visit was requested because he was found to have anisocoria, his left pupil is bigger than the right pupil, reacts very briskly to the light, and his extraocular movements are full with no evidence of nystagmus in all directions. 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 If any further question arises please do not hesitate to contact me. Objective Data Vital Signs Vital Signs: Vital Signs - 24 hr 07/21/25 15:05 07/21/25 16:00 07/21/25 20:00 Temperature 37.0 C Pulse Rate 67 62 Respiratory Rate 18 Blood Pressure 149/76 H Pulse Oximetry 100 Oxygen Delivery Room Air 07/21/25 20:00 07/22/25 00:00 07/22/25 00:00 Temperature Pulse Rate 71 60 69 Respiratory Rate 16 Blood Pressure 130/90 Pulse Oximetry 100 Oxygen Delivery 07/22/25 04:00 07/22/25 05:03 07/22/25 08:00 Temperature 36.7 C Pulse Rate 62 62 56 L Respiratory Rate 16 Blood Pressure 133/90 Pulse Oximetry 100 Oxygen Delivery 07/22/25 09:05 Temperature Pulse Rate Respiratory Rate Blood Pressure Pulse Oximetry Oxygen Delivery Room Air Intake/Output Intake/Output: Intake & Output 07/19/25 07/20/25 07/21/25 07/22/25 23:59 23:59 23:59 23:59 Intake Total 3330 1270 250 Balance 3330 1270 250 Meds/Results Medications: Active Medications Generic Name Dose Route Start Last Admin Trade Name Freq PRN Reason Stop Dose Admin Bupropion HCl 200 mg 07/20/25 09:00 07/22/25 08:53 Bupropion Hcl Sr (12hr) 100 Mg Tabcr PO 200 mg DAILY YVONNE Administration Calcium Carbonate 200 mg 07/20/25 06:18 Calcium Carbonate (Tums) 500 Mg (200 Mg Elemental) PO Q6H PRN Indigestion Chlordiazepoxide HCl 25 mg 07/20/25 06:00 07/22/25 05:02 Chlordiazepoxide (*Crx) 25 Mg Capsule PO 25 mg Q6HR YVONNE Administration Escitalopram Oxalate 15 mg 07/20/25 09:00 07/22/25 08:53 Escitalopram Oxalate 5 Mg Tablet PO 15 mg DAILY YVONNE Administration Ibuprofen 400 mg 07/20/25 06:18 Ibuprofen 400 Mg Tablet PO Q6H PRN Pain Rated 1-3 Lorazepam 2 mg 07/20/25 05:06 Lorazepam (*Crx) 1 Mg Tablet PO Q2H PRN CIWA>8, HR>100, or DBP>100 Multivitamins/Calcium 1 tablet 07/20/25 09:00 07/22/25 08:53 Therapeutic Multivitamins/Minerals Tab (*Bkc) PO 1 tablet DAILY YVONNE Administration Nicotine 1 patch 07/20/25 06:18 Nicotine (*Pbkc) 21 Mg Patch TRANSDERM DAILY PRN Nicotine withdrawal Ondansetron HCl 4 mg 07/20/25 05:06 Ondansetron Inj 4 Mg/2 Ml Vial IV PUSH Q6H PRN Nausea And Vomiting Perflutren Lipid Microsphere 0 ml 07/20/25 09:42 Perflutren Lipid Microspheres 1.5 Ml Vial Diluted To 10 Ml Total Volume IV PUSH 07/23/25 09:42 ONCE PRN adequate visualization Protocol Thiamine HCl 100 mg 07/20/25 09:00 07/22/25 08:53 Thiamine Hcl 100 Mg Tablet PO 100 mg DAILY YVONNE Administration Radiology Results: ITS Impressions Chest X-Ray 07/20/25 14:22 IMPRESSION: 1. No acute cardiopulmonary disease. Head/Neck CTA 07/20/25 15:56 IMPRESSION: 1. No evident atherosclerotic plaque with 0% stenosis of the right and left carotid bulbs relative to normal distal artery lumen diameter (NASCET criteria). 2. Unremarkable cerebral CT angiogram with no hemodynamically significant stenosis, thrombosis or aneurysm. Brain MRI 07/21/25 14:59 IMPRESSION: 1. Normal brain. No acute intracranial process. Head CT 07/22/25 09:46 IMPRESSION: 1. Normal brain. No acute intracranial process. Abdomen Ultrasound 07/22/25 12:09 IMPRESSION: 1. Cirrhosis and diffuse hepatic steatosis. Labs Labs: Laboratory Results - last 24 hr 07/21/25 07/21/25 07/21/25 18:16 19:50 23:30 WBC RBC Hgb Hct MCV MCH MCHC RDW Plt Count MPV Immature Gran % (Auto) Neut % (Auto) Lymph % (Auto) [place] % (Auto) Eos % (Auto) Baso % (Auto) Lymph # (Auto) [place] # (Auto) Eos # (Auto) Baso # (Auto) Abs Immat Gran (auto) Absolute Neuts (auto) Absolute Nucleated RBC Nucleated RBC % Sodium Potassium Chloride Carbon Dioxide Anion Gap BUN Creatinine Estim Creat Clear Calc Estimated GFR Glucose POC Capillary Glucose 123 H 109 H 163 H Calcium Total Bilirubin AST ALT Alkaline Phosphatase Total Protein Albumin 07/22/25 07/22/25 07/22/25 05:34 05:40 11:40 WBC 4.5 RBC 4.61 Hgb 13.6 L Hct 42.8 MCV 92.8 MCH 29.5 MCHC 31.8 L RDW 12.7 Plt Count 180 MPV 10.2 Immature Gran % (Auto) 0.4 Neut % (Auto) 53.5 Lymph % (Auto) 27.2 [place] % (Auto) 14.9 H Eos % (Auto) 2.9 Baso % (Auto) 1.1 Lymph # (Auto) 1.22 [place] # (Auto) 0.7 H Eos # (Auto) 0.1 Baso # (Auto) 0.1 Abs Immat Gran (auto) 0.02 Absolute Neuts (auto) 2.4 Absolute Nucleated RBC 0.000 Nucleated RBC % 0.0 Sodium 137 Potassium 3.1 L Chloride 101 Carbon Dioxide 26 Anion Gap 10 BUN 7 L Creatinine 0.79 Estim Creat Clear Calc 109 Estimated GFR > 60 Glucose 108 POC Capillary Glucose 101 95 Calcium 9.1 Total Bilirubin 1.2 AST 312 H ALT 250 H Alkaline Phosphatase 114 Total Protein 7.7 Albumin 4.3
--- NOTE | 2025-07-22 16:07 | PM.DS ---
DS: Admitting Diagnosis Discharge Date 07/22/25 Admitting Diagnosis - syncope - alcohol intoxication - transaminitis DS: Discharge Diagnosis Discharge Diagnosis (1) Acute left-sided muscle weakness: Code(s): M62.81 - Muscle weakness (generalized) Status: Acute (2) Syncope: Qualifiers: Syncope type: unspecified Qualified Code(s): R55 - Syncope and collapse Code(s): R55 - Syncope and collapse Status: Acute (3) Acute alcoholic hepatitis: Code(s): K70.10 - Alcoholic hepatitis without ascites Status: Acute (4) Alcoholism with alcohol dependence: Qualifiers: Complication of substance-induced condition: with unspecified complication Substance use status: with intoxication Qualified Code(s): F10.229 - Alcohol dependence with intoxication, unspecified Code(s): F10.20 - Alcohol dependence, uncomplicated Status: Acute DS: Summary Hospital Course Reason for hospitalization: - syncope - transaminitis Hospital Course: 34-year-old male with history of depression and heavy alcohol use who drove himself to the ER to be evaluated after a syncopal episode at work. In ED, AST 644, ALT 383, alk phos 132. Alcohol level 393. CXR no acute process. CT head no acute process. CTA head and neck no acute process. Patient was admitted for further syncope evaluation. In regards to syncope, patient remained asymptomatic while admitted. Remained in NSR on telemetry. Echo with normal EF with no valvular abnormalities. MRI brain with no acute process. Neurology was consulted due to concerns for CVA versus seizure in setting of left-sided weakness. Neurology felt presentation was consistent with alcohol intoxication/vasovagal event and did not recommend any further workup for seizure. On day of discharge, nursing noted difference in patient's pupil size, left being greater than right. Stroke alert was called. Did note left pupil slightly larger than right however it was briskly reactive to light and patient remained alert and oriented. Repeat stat CT head was obtained with no acute process. Patient was re-evaluated by Neurology who did not recommend any further workup and felt finding likely related to physiologic anisocoria. Neurology cleared patient for discharge without any medication changes at this time. Patient's left-sided weakness was improving on discharge and he was ambulating without difficulty. Neurology did recommend outpatient follow-up for possible EMG. He also has a chronic essential tremor for which he can follow-up with neurology. Patient noted to have elevated liver enzymes likely secondary to alcohol abuse. Right upper quadrant ultrasound showed cirrhosis with hepatic steatosis. Liver enzymes were improving on discharge. Case was discussed with Dr. Hart of GI prior to discharge who recommended outpatient consultation for new diagnosis of cirrhosis. Spent significant amount of time counseling patient on alcohol cessation. Patient was on a Librium taper while admitted and was discharged with 3 more doses of Librium to complete taper as outpatient. Ordered repeat CMP to be obtained in 7 days. Continue thiamine on discharge. Patient did not show any signs of alcohol withdrawal while admitted. Patient's potassium was 3.1 on day of discharge. He received oral replacement and I recommended that he have a repeat CMP in 7 days. Patient was discharged home in stable condition. He will follow-up with the on-call internal medicine physician in 5-7 days and will follow-up closely with neurology and GI as outpatient. Status at Discharge Functional status at discharge: independent ambulation Time Spent with Patient Time attestation: Total time spent providing and/or coordinating discharge services: Time spent: Greater than 30 minutes Exam Narrative: General: NAD Eyes: EOMI ENT: neck supple Cardiovascular: Regular rate and rhythm Respiratory: Clear to auscultation, respirations even and unlabored on RA Gastrointestinal: Soft, non tender Genitourinary: no suprapubic tenderness Musculoskeletal: No edema Skin: warm, dry Neuro: Alert and oriented x4. Cranial nerves II-XII intact. L pupil slightly larger than left, but reative to light. Face symmetric. Speech clear. Strength 4/5 in LUE, 5/5 in RUE. 5/5 in BLEs. Sensation to light touch intact face, BUE/BLEs. No dysmetria BUE/BLEs. Psych: Mood appropriate DS: Data Data Completed and Pending Completed studies during hospitalization: ITS Impressions Head CT 07/20/25 12:28 IMPRESSION: 1. Normal head CT. Chest X-Ray 07/20/25 14:22 IMPRESSION: 1. No acute cardiopulmonary disease. Head/Neck CTA 07/20/25 15:56 IMPRESSION: 1. No evident atherosclerotic plaque with 0% stenosis of the right and left carotid bulbs relative to normal distal artery lumen diameter (NASCET criteria). 2. Unremarkable cerebral CT angiogram with no hemodynamically significant stenosis, thrombosis or aneurysm. Brain MRI 07/21/25 14:59 IMPRESSION: 1. Normal brain. No acute intracranial process. Head CT 07/22/25 09:46 IMPRESSION: 1. Normal brain. No acute intracranial process. Abdomen Ultrasound 07/22/25 12:09 IMPRESSION: 1. Cirrhosis and diffuse hepatic steatosis. Labs on day of discharge: Labs from last 24 hours 07/22/25 07/22/25 07/22/25 11:40 05:40 05:34 WBC 4.5 RBC 4.61 Hgb 13.6 L Hct 42.8 MCV 92.8 MCH 29.5 MCHC 31.8 L RDW 12.7 Plt Count 180 MPV 10.2 Immature Gran % (Auto) 0.4 Neut % (Auto) 53.5 Lymph % (Auto) 27.2 [place] % (Auto) 14.9 H Eos % (Auto) 2.9 Baso % (Auto) 1.1 Lymph # (Auto) 1.22 [place] # (Auto) 0.7 H Eos # (Auto) 0.1 Baso # (Auto) 0.1 Abs Immat Gran (auto) 0.02 Absolute Neuts (auto) 2.4 Absolute Nucleated RBC 0.000 Nucleated RBC % 0.0 Sodium 137 Potassium 3.1 L Chloride 101 Carbon Dioxide 26 Anion Gap 10 BUN 7 L Creatinine 0.79 Estim Creat Clear Calc 109 Estimated GFR > 60 Glucose 108 POC Capillary Glucose 95 101 Calcium 9.1 Total Bilirubin 1.2 AST 312 H ALT 250 H Alkaline Phosphatase 114 Total Protein 7.7 Albumin 4.3 07/21/25 07/21/25 07/21/25 23:30 19:50 18:16 WBC RBC Hgb Hct MCV MCH MCHC RDW Plt Count MPV Immature Gran % (Auto) Neut % (Auto) Lymph % (Auto) [place] % (Auto) Eos % (Auto) Baso % (Auto) Lymph # (Auto) [place] # (Auto) Eos # (Auto) Baso # (Auto) Abs Immat Gran (auto) Absolute Neuts (auto) Absolute Nucleated RBC Nucleated RBC % Sodium Potassium Chloride Carbon Dioxide Anion Gap BUN Creatinine Estim Creat Clear Calc Estimated GFR Glucose POC Capillary Glucose 163 H 109 H 123 H Calcium Total Bilirubin AST ALT Alkaline Phosphatase Total Protein Albumin Discharge Plan Discharge Attending physician on discharge: Laly Harry Consulting providers: Kellee Kerr; Gianluca Estrada; Amanda Mata; Shavon Mahan Discharging Clinician: Shavon Mahan Anticipated Discharge Date/Time: 07/22/25 14:29 Patient Disposition: Home Activity: as tolerated Diet: regular Discharge Instructions: Take all medications as prescribed. AVOID alcohol. Do not drink while taking Librium. Make sure you are staying hydrated. Call to follow-up with GI as soon as possible. Follow-up with the employee relation manager internal medicine physician in 5-7 days. Return to the emergency department if you develop chest pain, shortness of breath, persistent fever >100.4, confusion, loss of consciousness. Patient Instructions: Cirrhosis of the Liver (DC), Syncope (DC) Patient Language: Yi Stand Alone Forms: General Discharge Information, Work/School Release IP Follow-up/Referrals: Amanda Mata MD [Physician, Neurology] - Call for Appointment Referral Note: outpatient nerve testing (EMG) Zeb Adler MD [Physician, Gastroenterology] - Call for Appointment Referral Note: cirrhosis Vin Hoffman MD [Physician, Family Practice] - Call for Appointment Referral Note: follow-up for hospitalization. Discharge Medications: New thiamine HCl (vitamin B1) [Vitamin B-1] 100 mg Tablet 100 mg PO DAILY Qty: 30 0RF chlordiazepoxide HCl 25 mg capsule 25 mg PO BID Qty: 3 0RF Continued bupropion HCl 200 mg tablet sustained-release 12 hr 200 mg PO DAILY escitalopram oxalate 10 mg tablet 15 mg PO DAILY Other Ambulatory Orders: Comprehensive Metabolic Panel (Routine) Timeframe: 1 Week Location: Determined by Patient Ordered By: Shavon Mahan Date of admission: 07/19/25 23:29 Primary Care Provider: PHYSICIAN,DIVISION HUMAN RESOURCES MANAGER Admitting Provider: Selina Mabry Attending physician on admission: Selina Mabry Condition: Stable
== END 2025-07-22 15:10 | disposition home or self-care (01) ==
LOC: ANHED 23:41 → ANH3MED 07-20 06:51
PROVIDERS: Physician Assistant; Admitting Provider Internal Medicine; Emergency Provider Emergency Medicine; Visit Provider Internal Medicine
DX: R55 Syncope and collapse (principal); M62.81 Muscle weakness (generalized); F10.229 Alcohol dependence with intoxication, unspecified; Y90.8 Blood alcohol level of 240 mg/100 ml or more; K70.10 Alcoholic hepatitis without ascites; G25.0 Essential tremor; F32.A Depression, unspecified; R21 Rash and other nonspecific skin eruption; F17.290 Nicotine dependence, other tobacco product, uncomplicated; F12.90 Cannabis use, unspecified, uncomplicated; Z82.3 Family history of stroke; Z20.822 Contact with and (suspected) exposure to COVID-19
CPT/HCPCS: 36415; 70450; 70496; 70498; 70553; 71045; 76705; 80053; 80061; 80074; 80307; 82077; 82550; 82607; 82746; 82948; 83735; 84100; 84484; 85025; 85610; 85730; 87637; 87651; 93005; 93306; 96361; 96365; 96375; 99285; A9270; A9577; G0378; J3411; J3475; J7030; Q9967